=== PATIENT | female | born 1965 | race Caucasian/White ===

== ENCOUNTER 2017-03-01 16:23 | Inpatient (IN) | payer OTHER ==
[~2017-03-01] VITALS: Ht 152.4 cm; Wt 86.3 kg
[2017-03-01 18:00] VITALS: BP 123/60; PULSE 78; RESP 18
[2017-03-01 18:05] VITALS: Ht 152.4 cm; Wt 86.3 kg
[2017-03-01 19:00] VITALS: BP 128/70; RESP 18
[2017-03-01] MEDS ORDERED: NACL 0.9% 3 ML SYG IV SCH (19:00)
[2017-03-01] MEDS ORDERED: ONDANSETRON 4 MG INJ IV PRN (19:00)
[2017-03-01] MEDS ORDERED: HYDROCODONE/APAP (5/325) TAB PO PRN (19:00)
[2017-03-01] MEDS ORDERED: ACETAMINOPHEN 325 MG TAB PO PRN (19:00)
[2017-03-01] MEDS ORDERED: DOCUSATE SODIUM 100 MG CAP PO PRN (19:00)
[2017-03-01] MEDS ORDERED: ZOLPIDEM 5 MG TAB PO PRN (19:00)
[2017-03-01] MEDS ORDERED: morphine 2 MG INJ IV PRN (19:00)
[2017-03-01] MEDS: DEXTROSE 5%-0.45% NACL 1,000 ML IV SCH (19:13)
--- NOTE | 2017-03-01 19:44 | HP ---
DATE OF ADMISSION: 03/01/2017 CHIEF COMPLAINT: Abdominal pain. HISTORY OF PRESENT ILLNESS: The patient is a 51-year-old female with a history of obesity, otherwis e no medical history. The patient has been experiencing abdominal pain intermittently for the past several years, usually it occurs twice a year, but she states that the pain has been more frequent a s of late. She states that she had pain in her abdomen quite severely for the past 6 days. She has had 3 visits to the ER at [place]. The patient once again went to [place] where she presente d with the same complaint of abdominal pain. She did have ultrasound of the abdomen that showed a c holelithiasis; otherwise, no evidence of cholecystitis. She had a normal common bile duct and hepat omegaly; otherwise, no significant findings. She did have elevated WBC at 13.3. The patient was se nt to [facility] for further workup. She does state that at times she gets nauseous and sh e has had bouts of emesis. She has no other complaints at this time. PAST MEDICAL HISTORY: Morbid obesity and intermittent abdominal pain. PAST SURGICAL HISTORY: . HOME MEDICATIONS: None. ALLERGIES: NO KNOWN DRUG ALLERGIES. FAMILY HISTORY: Denies. SOCIAL HISTORY: Denies any alcohol, tobacco, or drug abuse. REVIEW OF SYSTEMS: A 12-point review of systems is negative except for that discussed in HPI. PHYSICAL EXAMINATION: VITAL SIGNS: Temperature is 98.1, pulse 78, respiratory rate 18, BP 122/60, saturation 92% on room air. GENERAL: No acute distress, alert and oriented. HEENT: Normocephalic, atraumatic. LUNGS: Clear to auscultation. CARDIOVASCULAR: Regular rate and rhythm. ABDOMEN: Nondistended, soft. No surgical scars noted. Tender to palpation diffusely. Negative Mu rphy sign. EXTREMITIES: No clubbing, cyanosis, or edema. LABORATORIES: At [place] show white count 13.3, platelets of 351, glucose is slightly elevated a t 132, ALT is 91, lipase is 129, test was normal. DIAGNOSTICS: Ultrasound of the abdomen shows cholelithiasis, no evidence of bladder wall thickening or pericholecystic free fluid, normal common bile duct, hepatomegaly. ASSESSMENT AND PLAN 1. Persistent abdominal pain with nausea, vomiting. The patient had an ultrasound that did show ch olelithiasis. Her symptoms of abdominal pain are diffuse. Her lipase is slightly elevated at 129. The patient has had several visits to the ER for the same symptoms and requires further workup at t his time. Will order a HIDA scan as well as MRCP. Will get a GI and surgical consultations. Will give the patient a clear liquid diet and check lipase in the a.m. 2. Morbid obesity. Lifestyle changes will be advised. 3. Leukocytosis, possibly reactive secondary to pain. Will check a UA 4. Hyperglycemia. Will check an A1c. The patient has no reported history of diabetes. 5. Prophylaxis, ambulation. Dictated By: ELISSA PEACE MD BS/EDUARDO Conf#: [id number] DID#: [id number]
--- NOTE | 2017-03-01 19:47 | CONS ---
Date/Time of Note Date/Time of Note DATE: 03/01/17 TIME: 19:40 Assessment/Plan Assessment/Plan Chief Complaint/Hosp Course 51-year-old female with symptomatic cholelithiasis/chronic cholecystitis and likely gallstone pancreatitis versus acute cholecystitis * Continue IV fluid hydration, pain control * Monitor LFTs, lipase level * HIDA scan and MRCP have been ordered by primary care team * If continues to have pain then will need cholecystectomy * Medical clearance for possible surgery The above was discussed with the patient and the primary care team. Further recommendations will be made based on patient's clinical course Problems: Consultation Date/Type/Reason Admit Date/Time Mar 01, 2017 at 17:35 Date of Consultation: Mar 01, 2017 Type of Consultation: GENERAL SURGERY Reason for Consultation Abdominal pain Hx of Present Illness Patient is an obese 51-year-old female who denies any significant past medical history who is transferred from [facility] with right upper quadrant abdominal pain. Patient states her pain is been present for the last 5 days and constant in nature. It is worsened with oral intake. She does admit to eating a lot of greasy and fatty foods. She denies any diarrhea/ constipation or fever/chills. She has had multiple visits to the [place] emergency room and was diagnosed with gallstones, but discharged until this most recent episode. An ultrasound done in this most recent visit showed gallstones without gallbladder wall thickening or pericholecystic fluid. She did have a leukocytosis of 13,000. Her LFTs were within normal limits, however , her lipase was mildly elevated at 129. Currently she is still complaining of right upper quadrant abdominal pain. A 14 point review of systems was conducted and was negative except for that which is mentioned in HPI Past Medical History Medical History: no pertinent history Past Surgical History Past Surgical Hx: other () Social History Smoking Status: Never smoker Exam/Review of Systems Vital Signs Vitals Vital Signs Date Time Temp Pulse Resp B/P Pulse Ox O2 Delivery O2 Flow Rate FiO2 03/01/17 18:00 98.1 78 18 123/60 92 Exam GENERAL: Awake, alert, oriented x 3. No acute distress. SKIN: No jaundice. HEENT: PERRLA, EOMI, No Scleral Icterus NECK: Supple without JVD CARDIOVASCULAR: S1S2, regular rate and rhythm. No murmurs appreciated. RESPIRATORY: Clear to auscultation bilaterally. ABDOMEN: Obese, soft, bowel sounds present, nondistended, there is mild epigastric tenderness to palpation with moderate right upper quadrant tenderness to palpation. There is a negative Bustamante sign. There is no rebound or guarding. EXTREMITIES: Free range of motion x 4. No cyanosis, edema, or clubbing. NEUROLOGIC: Cranial nerves II-XII are intact. Sensation is intact grossly. Medications Medications Current Medications Dextrose/Sodium Chloride (D5-1/2ns) 1,000 ml @ 100 mls/hr Q10H IV Last administered on 03/01/17t 19:13; Admin Dose 100 MLS/HR; Start 03/01/17 at 18:45 Ondansetron HCl (Zofran Inj) 4 mg Q6H PRN IV NAUSEA AND/OR VOMITING; Start 07/08 at 19:00 Acetaminophen (Tylenol Tab) 650 mg Q6H PRN PO PAIN LEVEL 1-3 OR FEVER; Start at 19:00 Acetaminophen/ Hydrocodone Bitart ([place] (5/325)) 1 tab Q6H PRN PO MODERATE PAIN LEVEL 4-6; Start 03/01/17 at 19:00 Morphine Sulfate (morphine) 2 mg Q4H PRN IV SEVERE PAIN LEVEL 7-10; Start 03/01 at 19:00 Docusate Sodium (Colace) 100 mg Q12H PRN PO CONSTIPATION; Start 03/01/17 at 19: 00 Zolpidem Tartrate 5 mg 5 mg QHS PRN PO SLEEP; Start 03/01/17 at 19:00 Ampicillin Sodium/ Sulbactam Sodium (Unasyn 3gm/NS (Pmx)) 100 ml @ 100 mls/hr Q6 IVPB ; Start 03/01/17 at 20:00 BILLIE SMALLWOOD MD Mar 01, 2017 19:47
[2017-03-01] MEDS: AMPICILLIN/SULB 3 GM/NS (PMX) 100 ML IVPB SCH (21:11)
[2017-03-02] MEDS: AMPICILLIN/SULB 3 GM/NS (PMX) 100 ML IVPB SCH ×5 (00:19→23:50)
[2017-03-02 05:09] LABS: ADD SCAN DIFF NO
[2017-03-02 05:11] LABS: BASOPHILS % 0.2 % (0.0-2.0); EOSINOPHILS # 0.3 10^3/ul (0.0-0.5); EOSINOPHILS % 2.9 % (0.0-7.0); HEMATOCRIT 33.3 % (37.0-47.0); HEMOGLOBIN 10.9 g/dl (12.0-16.0); LYMPHOCYTES # 2.3 10^3/ul (0.8-2.9); LYMPHOCYTES % 25.7 % (15.0-51.0); MEAN CORPUSCULAR HEMOGLOBIN 29.9 pg (29.0-33.0); MEAN CORPUSCULAR HGB CONC 32.7 g/dl (32.0-37.0); MEAN CORPUSCULAR VOLUME 91.5 fl (82.0-101.0); MEAN PLATELET VOLUME 9.6 fl (7.4-10.4); MONOCYTE # 0.8 10^3/ul (0.3-0.9); MONOCYTES % 8.2 % (0.0-11.0); NEUTROPHIL # 5.7 10^3/ul (1.6-7.5); NEUTROPHILS % 62.7 % (39.0-77.0); PLATELET COUNT 338 10^3/UL (140-415); RED BLOOD COUNT 3.64 10^6/ul (4.20-5.40); RED CELL DISTRIBUTION WIDTH 13.3 % (11.5-14.5); WHITE BLOOD COUNT 9.1 10^3/ul (4.8-10.8)
[2017-03-02 05:43] LABS: ALBUMIN 3.5 g/dl (3.3-4.9); ALBUMIN/GLOBULIN RATIO 1.29; BILIRUBIN,INDIRECT 0.4 mg/dl (0-1.1); BILIRUBIN,TOTAL 0.4 mg/dl (0.2-1.3); CALCIUM 8.3 mg/dl (8.4-10.2); CHOL/HDL RATIO 4.3 RATIO; CREATININE 0.54 mg/dl (0.44-1.00); TOTAL PROTEIN 6.2 g/dl (6.1-8.1)
[2017-03-02] MEDS: DEXTROSE 5%-0.45% NACL 1,000 ML IV SCH ×3 (07:02→21:53)
[2017-03-02 07:46] VITALS: BP 123/70; RESP 18
--- NOTE | 2017-03-02 10:16 | CONS ---
Date/Time of Note Date/Time of Note DATE: 03/02/17 TIME: 09:57 Assessment/Plan Assessment/Plan Additional Assessment/Plan Assessment * Abdominal pain Cholecystitis vs gallstone pancreatitis Plan * NPO * continue present management * Will await MRCP and HIDA scan results * Further recommendations depend on patient clinical course Consultation Date/Type/Reason Admit Date/Time Mar 01, 2017 at 17:35 Date of Consultation: Mar 02, 2017 Type of Consultation: Gastroenterology Reason for Consultation cholecystitis/elevated lipase Referring Provider: ELISSA PEAEC Hx of Present Illness 51 years old female who was transferred to our hospital from another [facility] [place] because of right upper quadrant pain.Present condition started 5 days as right upper quadrant pain,sharp with no radiation with associated nausea and non bilious vomiting.She denies any fever,chest pain,shortness of breath hematemesis.nor hematochezia.She had [facility] because of right upper quadrant pain.Ultrasound performed at [place] revealed cholelithiasis,no evidenced gallbladder thickening pericholecystic fluid,normal common bile duct and hepatomegaly.Lipase was 129 at [place] but present lipase levels 89,AST 19,ALT 81and alkaline phosphatase 77. Patient claims mild abdominal pain non radiating but with no nausea ,vomiting or fever.MRI and HIDA scan was ordered and will await results. Constitutional: improved Eyes: no complaints ENT: no complaints Respiratory: no complaints Cardiovascular: no complaints Gastrointestinal: nausea, pain, vomiting Genitourinary: no complaints Musculoskeletal: no complaints Skin: no complaints Neurologic: no complaints Endocrine: no complaints Lymphatic: no complaints Psychological: nl mood/affect, no complaints Immunologic: no complaints Past Medical History Medical History: no pertinent history Past Surgical History Past Surgical Hx: no surgical history, other () Family History Significant Family History: no pertinent family hx Social History Smoking Status: Never smoker Exam/Review of Systems Vital Signs Vitals Vital Signs Date Time Temp Pulse Resp B/P Pulse Ox O2 Delivery O2 Flow Rate FiO2 03/02/17 07:46 98.5 85 18 123/70 95 Intake and Output 03/01/17 03/01/17 03/02/17 15:00 23:00 07:00 Intake Total 100 ml 400 ml Output Total 1300 ml Balance 100 ml -900 ml Exam Constitutional: alert, oriented, well developed Head: atraumatic, normocephalic Eyes: PERRL, nl sclera ENMT: mucosa pink and moist, nl external ears & nose, nl nasal mucosa & septum Neck: non-tender, supple Respiratory: clear to auscultation, normal air movement Cardiovascular: nl pulses, regular rate and rhythm Gastrointestinal: nl liver, spleen, soft, tender (right upper quadrant), No rebound or guarding Musculoskeletal: nl extremities to inspection, nl gait and stance Extremities: normal pulses Neurological: nl mental status, nl speech, nl strength Skin: nl turgor, No rash or lesions Lymph: nl lymph nodes Results Result Diagram: 03/02/17 0431 03/02/17 0431 Results 24 hrs Laboratory Tests Test 03/02/17 04:31 White Blood Count 9.1 Red Blood Count 3.64 L Hemoglobin 10.9 L Hematocrit 33.3 L Mean Corpuscular Volume 91.5 Mean Corpuscular Hemoglobin 29.9 Mean Corpuscular Hemoglobin Concent 32.7 Red Cell Distribution Width 13.3 Platelet Count 338 Mean Platelet Volume 9.6 Neutrophils % 62.7 Lymphocytes % 25.7 Monocytes % 8.2 Eosinophils % 2.9 Basophils % 0.2 Nucleated Red Blood Cells % 0.0 Neutrophils # 5.7 Lymphocytes # 2.3 Monocytes # 0.8 Eosinophils # 0.3 Basophils # 0.0 Nucleated Red Blood Cells # 0.0 Sodium Level 139 Potassium Level 4.0 Chloride Level 107 Carbon Dioxide Level 27 Anion Gap 9 Blood Urea Nitrogen 6 L Creatinine 0.54 Glucose Level 113 Hemoglobin A1c 5.4 Calcium Level 8.3 L Phosphorus Level 4.0 Magnesium Level 2.0 Total Bilirubin 0.4 Direct Bilirubin 0.00 Indirect Bilirubin 0.4 Aspartate Amino Transf (AST/SGOT) 19 Alanine Aminotransferase (ALT/SGPT) 81 H Alkaline Phosphatase 77 Total Protein 6.2 Albumin 3.5 Globulin 2.70 Albumin/Globulin Ratio 1.29 Triglycerides Level 107 Cholesterol Level 135 LDL Cholesterol, Calculated 83 HDL Cholesterol 31 L Cholesterol/HDL Ratio 4.3 Lipase 89 Medications Medications Current Medications Dextrose/Sodium Chloride (D5-1/2ns) 1,000 ml @ 100 mls/hr Q10H IV Last administered on 03/02/17t 07:02; Admin Dose 100 MLS/HR; Start 03/01/17 at 18:45 Ondansetron HCl (Zofran Inj) 4 mg Q6H PRN IV NAUSEA AND/OR VOMITING; Start 07/08 at 19:00 Acetaminophen (Tylenol Tab) 650 mg Q6H PRN PO PAIN LEVEL 1-3 OR FEVER; Start at 19:00 Acetaminophen/ Hydrocodone Bitart ([place] (5/325)) 1 tab Q6H PRN PO MODERATE PAIN LEVEL 4-6; Start 03/01/17 at 19:00 Morphine Sulfate (morphine) 2 mg Q4H PRN IV SEVERE PAIN LEVEL 7-10; Start 03/01 at 19:00 Docusate Sodium (Colace) 100 mg Q12H PRN PO CONSTIPATION; Start 03/01/17 at 19: 00 Zolpidem Tartrate 5 mg 5 mg QHS PRN PO SLEEP; Start 03/01/17 at 19:00 Ampicillin Sodium/ Sulbactam Sodium (Unasyn 3gm/NS (Pmx)) 100 ml @ 100 mls/hr Q6 IVPB Last administered on 03/02/17t 05:15; Admin Dose 100 MLS/HR; Start 07/08 at 20:00 MARIO SANDERS MD Mar 02, 2017 10:08
--- NOTE | 2017-03-02 10:51 | PN ---
Date/Time of Note Date/Time of Note DATE: 03/02/17 TIME: 10:44 Assessment/Plan VTE Prophylaxis VTE Prophylaxis Intervention: ambulation Lines/Catheters [facility] Peripheral IV Urinary Cath still in place: No Assessment/Plan Chief Complaint/Hosp Course 1. Symptomatic cholelithiasis with mild pancreatitis Patient has had recurrent bouts of abdominal pain with multiple ER visits and may need cholecystectomy during this admission Surgical and GI consults appreciated, patient may have a cholecystectomy tomorrow, follow-up with surgical recommendations Follow-up on HIDA scan and MRCP for evaluation of cholecystitis and possible choledocholithiasis Lipase is now normal and patients previous mild elevation may be secondary to gallstone pancreatitis or microlithiasis 2. Morbid obesity Lifestyle changes will be advised. 3. Leukocytosis-resolved Patient has no evidence of infection at this time hence no indication for antibiotics, UA at previous hospital was negative for infection 4. Hyperglycemia-resolved Elevated sugars were likely secondary to stress as A1c is 5.4 Prophylaxis: Ambulation Problems: Subjective 24 Hr Interval Summary Constitutional: no complaints Exam/Review of Systems Vital Signs Vitals Vital Signs Date Time Temp Pulse Resp B/P Pulse Ox O2 Delivery O2 Flow Rate FiO2 03/02/17 07:46 98.5 85 18 123/70 95 Intake and Output 03/01/17 03/01/17 03/02/17 15:00 23:00 07:00 Intake Total 100 ml 400 ml Output Total 1300 ml Balance 100 ml -900 ml Exam Constitutional: alert, oriented Respiratory: clear to auscultation Cardiovascular: regular rate and rhythm Gastrointestinal: non-tender, soft, No distended Musculoskeletal: nl extremities to inspection Results Result Diagram: 03/02/17 0431 03/02/17 0431 Results 24 hrs Laboratory Tests Test 03/02/17 04:31 White Blood Count 9.1 Red Blood Count 3.64 L Hemoglobin 10.9 L Hematocrit 33.3 L Mean Corpuscular Volume 91.5 Mean Corpuscular Hemoglobin 29.9 Mean Corpuscular Hemoglobin Concent 32.7 Red Cell Distribution Width 13.3 Platelet Count 338 Mean Platelet Volume 9.6 Neutrophils % 62.7 Lymphocytes % 25.7 Monocytes % 8.2 Eosinophils % 2.9 Basophils % 0.2 Nucleated Red Blood Cells % 0.0 Neutrophils # 5.7 Lymphocytes # 2.3 Monocytes # 0.8 Eosinophils # 0.3 Basophils # 0.0 Nucleated Red Blood Cells # 0.0 Sodium Level 139 Potassium Level 4.0 Chloride Level 107 Carbon Dioxide Level 27 Anion Gap 9 Blood Urea Nitrogen 6 L Creatinine 0.54 Glucose Level 113 Hemoglobin A1c 5.4 Calcium Level 8.3 L Phosphorus Level 4.0 Magnesium Level 2.0 Total Bilirubin 0.4 Direct Bilirubin 0.00 Indirect Bilirubin 0.4 Aspartate Amino Transf (AST/SGOT) 19 Alanine Aminotransferase (ALT/SGPT) 81 H Alkaline Phosphatase 77 Total Protein 6.2 Albumin 3.5 Globulin 2.70 Albumin/Globulin Ratio 1.29 Triglycerides Level 107 Cholesterol Level 135 LDL Cholesterol, Calculated 83 HDL Cholesterol 31 L Cholesterol/HDL Ratio 4.3 Lipase 89 Medications Medications Current Medications Dextrose/Sodium Chloride (D5-1/2ns) 1,000 ml @ 100 mls/hr Q10H IV Last administered on 03/02/17 07:02; Admin Dose 100 MLS/HR; Start 03/01/17 at 18:45 Ondansetron HCl (Zofran Inj) 4 mg Q6H PRN IV NAUSEA AND/OR VOMITING; Start 07/08 at 19:00 Acetaminophen (Tylenol Tab) 650 mg Q6H PRN PO PAIN LEVEL 1-3 OR FEVER; Start at 19:00 Acetaminophen/ Hydrocodone Bitart ([place] (5/325)) 1 tab Q6H PRN PO MODERATE PAIN LEVEL 4-6; Start 03/01/17 at 19:00 Morphine Sulfate (morphine) 2 mg Q4H PRN IV SEVERE PAIN LEVEL 7-10; Start 03/01 at 19:00 Docusate Sodium (Colace) 100 mg Q12H PRN PO CONSTIPATION; Start 03/01/17 at 19: 00 Zolpidem Tartrate 5 mg 5 mg QHS PRN PO SLEEP; Start 03/01/17 at 19:00 Ampicillin Sodium/ Sulbactam Sodium (Unasyn 3gm/NS (Pmx)) 100 ml @ 100 mls/hr Q6 IVPB Last administered on 03/02/17 05:15; Admin Dose 100 MLS/HR; Start 07/08 at 20:00 ELISSA PEACE Mar 02, 2017 10:51
--- NOTE | 2017-03-02 12:13 | PN ---
Date/Time of Note Date/Time of Note DATE: 03/02/17 TIME: 12:10 Assessment/Plan Lines/Catheters IV Catheter Type (from Nrs): Peripheral IV Mike in Place (from Nrs): No Assessment/Plan Assessment/Plan 51-year-old female with symptomatic cholelithiasis/chronic cholecystitis and likely gallstone pancreatitis versus acute cholecystitis * Clinically improved and currently pain-free * LFTs and lipase level normalized. * HIDA scan and MRCP have been ordered by primary care team * Discussed treatment options with patient. If remains pain-free then can plan for outpatient cholecystectomy. If continues to have pain then will need inpatient cholecystectomy. The above was discussed with the patient and the primary care team. Patient would prefer to have outpatient cholecystectomy if she remains pain-free. Further recommendations will be made based on patient's clinical course Subjective 24 Hr Interval Summary Feels much better. Denies abdominal pain. Afebrile. Exam/Review of Systems Vital Signs Vitals Vital Signs Date Time Temp Pulse Resp B/P Pulse Ox O2 Delivery O2 Flow Rate FiO2 03/02/17 07:46 98.5 85 18 123/70 95 Intake and Output 03/01/17 03/01/17 03/02/17 15:00 23:00 07:00 Intake Total 100 ml 400 ml Output Total 1300 ml Balance 100 ml -900 ml Exam Free Text/Dictation GENERAL: Awake, alert, oriented x 3. No acute distress. SKIN: No jaundice. HEENT: PERRLA, EOMI, No Scleral Icterus CARDIOVASCULAR: S1S2, regular rate and rhythm. No murmurs appreciated. RESPIRATORY: Clear to auscultation bilaterally. ABDOMEN: Obese, soft, bowel sounds present, nondistended, nontender to palpation EXTREMITIES: Free range of motion x 4. No cyanosis, edema, or clubbing. Results Result Diagram: 03/02/17 0431 03/02/17 0431 BILLIE SMALLWOOD MD Mar 02, 2017 12:13
--- NOTE | 2017-03-02 18:24 | RADRPT ---
PROCEDURE: MR Abdomen. CLINICAL INDICATION: Abdominal pain. Concern for choledocholithiasis and cholecystitis. TECHNIQUE: MRI abdomen without contrast was performed on the a high-resolution, high [place] field [facility] scanner. Patient was examined without IV contrast. Images were reviewed on a high-resolutio n PACS workstation. COMPARISON: None available FINDINGS: MRI Abdomen: The liver is enlarged measuring 21.5 cm but demonstrates homogeneous signal intensity. No liver mas s lesion or intrahepatic biliary dilatation is seen. The spleen is normal in size and homogeneous i n signal intensity. The stomach is partially collapsed but grossly unremarkable. Multiple stones o f varying sizes are present within the gallbladder ranging from 5-18 mm. No gallbladder wall edema or pericholecystic inflammatory changes seen. There is no intra or extrahepatic biliary duct dilata tion. The proximal common bile duct measures 4 mm and tapers smoothly towards the ampulla. There i s no evidence of pancreatic divisum. There is questionable cheryl pancreatic T2 signal surrounding th e pancreatic body/neck and extending inferiorly and mesentery. No focal pancreatic lesion is seen. Small simple appearing T2 hyperintense right-sided renal lesions likely represent small cysts. The a drenal glands and kidneys are otherwise symmetrically normal. The aorta is of normal caliber. There is no retroperitoneal lymphadenopathy. The visualized bowel is unremarkable. IMPRESSION: 1. Cholelithiasis without evidence of cholecystitis, choledocholithiasis, or biliary obstruction. 2. Questionable peripancreatic increased T2 signal with surrounding inflammatory changes, may repre sent mild pancreatitis. Correlate with pancreatic enzymes. 3. Simple-appearing small right renal cyst. 4. Hepatomegaly. RPTAT: AA .Bronson Iyer MD, Date Time Electronically viewed and signed by .Bronson Iyer MD, MD on 03/02/2017 18:24 .A/
[2017-03-02 19:06] VITALS: BP 130/72; RESP 18
[2017-03-03] MEDS: AMPICILLIN/SULB 3 GM/NS (PMX) 100 ML IVPB SCH ×3 (05:40→18:07)
[2017-03-03 05:43] LABS: ADD SCAN DIFF NO
[2017-03-03 06:04] LABS: BASOPHILS % 0.3 % (0.0-2.0); EOSINOPHILS # 0.3 10^3/ul (0.0-0.5); EOSINOPHILS % 4.4 % (0.0-7.0); HEMATOCRIT 32.6 % (37.0-47.0); HEMOGLOBIN 10.4 g/dl (12.0-16.0); LYMPHOCYTES # 2.4 10^3/ul (0.8-2.9); LYMPHOCYTES % 33.4 % (15.0-51.0); MEAN CORPUSCULAR HEMOGLOBIN 29.3 pg (29.0-33.0); MEAN CORPUSCULAR HGB CONC 31.9 g/dl (32.0-37.0); MEAN CORPUSCULAR VOLUME 91.8 fl (82.0-101.0); MONOCYTE # 0.6 10^3/ul (0.3-0.9); MONOCYTES % 8.1 % (0.0-11.0); NEUTROPHIL # 3.9 10^3/ul (1.6-7.5); NEUTROPHILS % 53.5 % (39.0-77.0); PLATELET COUNT 316 10^3/UL (140-415); RED BLOOD COUNT 3.55 10^6/ul (4.20-5.40); RED CELL DISTRIBUTION WIDTH 13.2 % (11.5-14.5); WHITE BLOOD COUNT 7.3 10^3/ul (4.8-10.8)
[2017-03-03 06:26] LABS: ALBUMIN 3.4 g/dl (3.3-4.9); ALBUMIN/GLOBULIN RATIO 1.25; BILIRUBIN,INDIRECT 0.2 mg/dl (0-1.1); BILIRUBIN,TOTAL 0.2 mg/dl (0.2-1.3); CALCIUM 8.5 mg/dl (8.4-10.2); CREATININE 0.56 mg/dl (0.44-1.00); POTASSIUM 3.9 mmol/L (3.5-5.1); TOTAL PROTEIN 6.1 g/dl (6.1-8.1)
[2017-03-03 07:24] VITALS: BP 107/59; RESP 19
--- NOTE | 2017-03-03 08:52 | PN ---
Date/Time of Note Date/Time of Note DATE: 03/03/17 TIME: 08:46 Assessment/Plan VTE Prophylaxis VTE Prophylaxis Intervention: ambulation, SCD's Lines/Catheters IV Catheter Type (from Nrs): Peripheral IV Urinary Cath still in place: No Assessment/Plan Assessment/Plan 51 yo F who presented with abd pain managed for 1. Symptomatic cholelithiasis with mild pancreatitis * Patient has had recurrent bouts of abdominal pain with multiple ER visits and may need cholecystectomy during this admission * Surgical and GI consults appreciated, patient has opted for outpt cholecystectomy if not emergent per surgery * MRCP not suggestive of choledocholithiasis / mild transaminase elevation resolved / Lipase levels wnl * Follow-up on HIDA scan to r/o cholecystitis 2. Morbid obesity * tosin controlled diet / dietary counselling / lifestyle changes 3. Reactive Leukocytosis-resolved * Patient has no evidence of infection at this time hence no indication for antibiotics, UA at previous hospital was negative for infection Prophylaxis: Ambulation Subjective 24 Hr Interval Summary Free Text/Dictation No new issues, patient being wheeled to HIDA scan Exam/Review of Systems Vital Signs Vitals Vital Signs Date Time Temp Pulse Resp B/P Pulse Ox O2 Delivery O2 Flow Rate FiO2 03/03/17 07:24 98.7 78 19 107/59 99 Intake and Output 03/02/17 03/02/17 03/03/17 15:00 23:00 07:00 Intake Total 1000 ml 1520 ml 580 ml Output Total 300 ml 1800 ml Balance 1000 ml 1220 ml -1220 ml Exam Constitutional: alert, oriented Respiratory: clear to auscultation Cardiovascular: regular rate and rhythm Gastrointestinal: non-tender, soft, No distended Musculoskeletal: nl extremities to inspection Results Result Diagram: 03/03/17 0435 03/03/17 0435 Results 24 hrs Laboratory Tests Test 03/03/17 04:35 White Blood Count 7.3 Red Blood Count 3.55 L Hemoglobin 10.4 L Hematocrit 32.6 L Mean Corpuscular Volume 91.8 Mean Corpuscular Hemoglobin 29.3 Mean Corpuscular Hemoglobin Concent 31.9 L Red Cell Distribution Width 13.2 Platelet Count 316 Mean Platelet Volume 10.0 Neutrophils % 53.5 Lymphocytes % 33.4 Monocytes % 8.1 Eosinophils % 4.4 Basophils % 0.3 Nucleated Red Blood Cells % 0.0 Neutrophils # 3.9 Lymphocytes # 2.4 Monocytes # 0.6 Eosinophils # 0.3 Basophils # 0.0 Nucleated Red Blood Cells # 0.0 Sodium Level 141 Potassium Level 3.9 Chloride Level 108 Carbon Dioxide Level 27 Anion Gap 10 Blood Urea Nitrogen 4 L Creatinine 0.56 Glucose Level 119 Calcium Level 8.5 Total Bilirubin 0.2 Direct Bilirubin 0.00 Indirect Bilirubin 0.2 Aspartate Amino Transf (AST/SGOT) 19 Alanine Aminotransferase (ALT/SGPT) 67 Alkaline Phosphatase 74 Total Protein 6.1 Albumin 3.4 Globulin 2.70 Albumin/Globulin Ratio 1.25 Lipase 47 Medications Medications Current Medications Dextrose/Sodium Chloride (D5-1/2ns) 1,000 ml @ 100 mls/hr Q10H IV Last administered on 03/02/17 21:53; Admin Dose 100 MLS/HR; Start 03/01/17 at 18:45 Ondansetron HCl (Zofran Inj) 4 mg Q6H PRN IV NAUSEA AND/OR VOMITING; Start 07/08 at 19:00 Acetaminophen (Tylenol Tab) 650 mg Q6H PRN PO PAIN LEVEL 1-3 OR FEVER; Start at 19:00 Acetaminophen/ Hydrocodone Bitart ([place] (5/325)) 1 tab Q6H PRN PO MODERATE PAIN LEVEL 4-6; Start 03/01/17 at 19:00 Morphine Sulfate (morphine) 2 mg Q4H PRN IV SEVERE PAIN LEVEL 7-10; Start 03/01 at 19:00 Docusate Sodium (Colace) 100 mg Q12H PRN PO CONSTIPATION; Start 03/01/17 at 19: 00 Zolpidem Tartrate 5 mg 5 mg QHS PRN PO SLEEP; Start 03/01/17 at 19:00 Ampicillin Sodium/ Sulbactam Sodium (Unasyn 3gm/NS (Pmx)) 100 ml @ 100 mls/hr Q6 IVPB Last administered on 03/03/17 05:40; Admin Dose 100 MLS/HR; Start 07/08 at 20:00 Procedures Procedures ROCEDURE: MR Abdomen. CLINICAL INDICATION: Abdominal pain. Concern for choledocholithiasis and cholecystitis. TECHNIQUE: MRI abdomen without contrast was performed on the a high-resolution , high [place] field strength scanner. Patient was examined without IV contrast. Images were reviewed on a high-resolution PACS workstation. COMPARISON: None available FINDINGS: MRI Abdomen: The liver is enlarged measuring 21.5 cm but demonstrates homogeneous signal intensity. No liver mass lesion or intrahepatic biliary dilatation is seen. The spleen is normal in size and homogeneous in signal intensity. The stomach is partially collapsed but grossly unremarkable. Multiple stones of varying sizes are present within the gallbladder ranging from 5-18 mm. No gallbladder wall edema or pericholecystic inflammatory changes seen. There is no intra or extrahepatic biliary duct dilatation. The proximal common bile duct measures 4 mm and tapers smoothly towards the ampulla. There is no evidence of pancreatic divisum. There is questionable cheryl pancreatic T2 signal surrounding the pancreatic body/neck and extending inferiorly and mesentery. No focal pancreatic lesion is seen. Small simple appearing T2 hyperintense right-sided renal lesions likely represent small cysts. The adrenal glands and kidneys are otherwise symmetrically normal. The aorta is of normal caliber. There is no retroperitoneal lymphadenopathy. The visualized bowel is unremarkable. IMPRESSION: 1. Cholelithiasis without evidence of cholecystitis, choledocholithiasis, or biliary obstruction. 2. Questionable peripancreatic increased T2 signal with surrounding inflammatory changes, may represent mild pancreatitis. Correlate with pancreatic enzymes. 3. Simple-appearing small right renal cyst. 4. Hepatomegaly. RPTAT: AA .Bronson Iyer MD, Date Time Electronically viewed and signed by .Bronson Iyer MD, on 03/02/2017 18:24 .A/ CC: ELISSA PEACE BOLATITO M. Mar 03, 2017 08:52
[2017-03-03] MEDS: DEXTROSE 5%-0.45% NACL 1,000 ML IV SCH (12:49)
--- NOTE | 2017-03-03 14:28 | QN ---
Documentation Comment Patient down getting HIDA scan. Discussed with nurse. No complaints of pain and wants to go home. If HIDA negative then patient stable surgically for discharge home and follow up for outpatient cholecystectomy. BILLIE SMALLWOOD MD Mar 03, 2017 14:28
--- NOTE | 2017-03-03 15:56 | RADRPT ---
PROCEDURE: Nuclear medicine hepatobiliary scan CLINICAL INDICATION: Right upper quadrant pain. Abdominal pain. Gallstones. TECHNIQUE: 8.4 mCi of technetium-99m Choletec was administered intravenously. Planar imaging of t hepatobiliary system was performed. Delayed images were obtained. Images were reviewed on the h igh resolution PACS workstation. COMPARISON: MRI dated 03/02/2017 FINDINGS: There is normal and homogeneous uptake throughout the hepatobiliary system. There is normal emptyin g of radiotracer into the biliary tract. The common bile duct is normal. The gallbladder is visual ized at 30 minutes. There is lack of visualization of the small bowel on the initial images. On th e delayed images, there is emptying of radiotracer from the liver, with normal activity throughout t he small bowel. IMPRESSION: 1. Normal hepatobiliary scan. There is normal filling of the gallbladder. 2. Patent common bile duct with normal visualization of the small bowel. RPTAT: HMJB .Galdino Crisostomo MD, Date Time Electronically viewed and signed by .Galdino Crisostomo MD, on 03/03/2017 15:55 .B/
--- NOTE | 2017-03-03 16:42 | PDOCDIS ---
Discharge Instructions DIAGNOSIS Discharge Diagnosis: Gall stones CONDITION Patient Condition: Stable HOME CARE INSTRUCTIONS: Diet Instructions: Low Fat /Cholesterol ACTIVITY: Activity Restrictions: Slowly Increase Activity Rest between Activity REFERRALS Other Referrals F/u with Dr Parsons for surgery Phan Parsons MD Specialty : General Surgery Office Address : [address] [place] [id number] Office Office FADY ADAME Mar 03, 2017 16:42
--- NOTE | 2017-03-03 16:48 | DS ---
Date/Time of Note Date/Time of Note DATE: 03/03/17 TIME: 16:43 Discharge Summary Admission/Discharge Info Admit Date/Time Mar 01, 2017 at 17:35 Discharge Date/Time March 03, 2017 . Final Diagnosis 51-year-old female who presented with abdominal pain managed for the followin. Symptomatic cholelithiasis without choledocholithiasis. 2. Mild transaminitis now resolved 3. Morbid obesity 4. Reactive leukocytosis: Resolved 5. Mild pancreatitis also resolved . Consults Gastroenterology: Suchov General surgery: Jaqueline . Hospital Course Full details are available in the chart for review, in summary this 51-year-old female presented to emergency room with abdominal pain for the past several years intermittently and which had become more frequent of late. She was she was admitted and she was found to have a mildly elevated lipase level at 129. After an ultrasound showed cholelithiasis there was concern for gallstone pancreatitis. She had an MRCP however that showed cholelithiasis without evidence of cholecystitis, choledocholithiasis, or biliary obstruction. He did show a mild pancreatitis however as well as a small right renal cyst and hepatomegaly. After this she underwent a HIDA scan that came back normal. The surgeon did offer her elective cholecystectomy in-house, but patient opted to pursue this as outpatient. She was found to be mildly anemic however this was stable throughout her hospitalization. At this time she is tolerating a diet, she has been cleared for outpatient follow-up and outpatient surgical follow-up for an elective laparoscopic cholecystectomy when the patient is ready. Her lipase levels have normalized as liver enzymes as well. . Follow-up Plan Patient was follow-up with general surgery as outpatient for elective cholecystectomy. . Primary Care Provider [facility] Time spent on discharge: > 30 minutes Pending Labs Laboratory Tests Test 03/03/17 04:35 White Blood Count 7.310^3/ul (4.8-10.8) Red Blood Count 3.5510^6/ul (4.20-5.40) Hemoglobin 10.4g/dl (12.0-16.0) Hematocrit 32.6% (37.0-47.0) Mean Corpuscular Volume 91.8fl (82.0-101.0) Mean Corpuscular Hemoglobin 29.3pg (29.0-33.0) Mean Corpuscular Hemoglobin Concent 31.9g/dl (32.0-37.0) Red Cell Distribution Width 13.2% (11.5-14.5) Platelet Count 43003^3/UL (140-415) Mean Platelet Volume 10.0fl (7.4-10.4) Neutrophils % 53.5% (39.0-77.0) Lymphocytes % 33.4% (15.0-51.0) Monocytes % 8.1% (0.0-11.0) Eosinophils % 4.4% (0.0-7.0) Basophils % 0.3% (0.0-2.0) Nucleated Red Blood Cells % 0.0/100WBC (0.0-0.0) Neutrophils # 3.910^3/ul (1.6-7.5) Lymphocytes # 2.410^3/ul (0.8-2.9) Monocytes # 0.610^3/ul (0.3-0.9) Eosinophils # 0.310^3/ul (0.0-0.5) Basophils # 0.010^3/ul (0.0-0.1) Nucleated Red Blood Cells # 0.010^3/ul (0.0-0.0) Sodium Level 141mmol/L (135-144) Potassium Level 3.9mmol/L (3.5-5.1) Chloride Level 108mmol/L (97-110) Carbon Dioxide Level 27mmol/L (21-31) Anion Gap 10 (8-16) Blood Urea Nitrogen 4mg/dl (7-20) Creatinine 0.56mg/dl (0.44-1.00) Glucose Level 119mg/dl (70-220) Calcium Level 8.5mg/dl (8.4-10.2) Total Bilirubin 0.2mg/dl (0.2-1.3) Direct Bilirubin 0.00mg/dl (0.00-0.20) Indirect Bilirubin 0.2mg/dl (0-1.1) Aspartate Amino Transf (AST/SGOT) 19IU/L (15-46) Alanine Aminotransferase (ALT/SGPT) 67IU/L (13-69) Alkaline Phosphatase 74IU/L (42-121) Total Protein 6.1g/dl (6.1-8.1) Albumin 3.4g/dl (3.3-4.9) Globulin 2.70g/dl (1.3-3.2) Albumin/Globulin Ratio 1.25 Lipase 47U/L (23-300) FADY ADAME. Mar 03, 2017 16:48
[2017-03-03 19:15] VITALS: BP 125/76; RESP 18
== END 2017-03-03 20:25 | disposition home or self-care (01) | DRG 444 ==
LOC: MS1 17:35
PROVIDERS: ADMIT Internal Medicine; ATTEND Internal Medicine
DX: K80.20 Calculus of gallbladder without cholecystitis without obstruction (principal); K85.90 Acute pancreatitis without necrosis or infection, unspecified; E66.01 Morbid (severe) obesity due to excess calories; N28.1 Cyst of kidney, acquired; R16.0 Hepatomegaly, not elsewhere classified; D64.9 Anemia, unspecified; R73.9 Hyperglycemia, unspecified; Z68.37 Body mass index [BMI] 37.0-37.9, adult
CPT/HCPCS: 74181; 78226; 80053; 80061; 83036; 83690; 83735; 84100; 85025; A9537; J0295; J7042

== ENCOUNTER 2017-04-02 22:29 | Inpatient (IN) | payer OTHER ==
[~2017-04-02] VITALS: Ht 152.4 cm; Wt 89.1 kg
[2017-04-02 23:00] VITALS: BP 145/79; PULSE 82; RESP 20
[2017-04-02 23:39] VITALS: Ht 152.4 cm; Wt 89.1 kg
[2017-04-03] MEDS ORDERED: ONDANSETRON 4 MG INJ IV PRN ×2 (00:30→03:30)
[2017-04-03] MEDS: SOD CHLORIDE 0.9% 1,000 ML IV SCH ×3 (00:46→20:30)
[2017-04-03] MEDS: HYDROmorphONE 1 MG/ML SYG IV PRN ×5 (00:46→20:37)
[2017-04-03 02:00] VITALS: BP 147/86; RESP 19
--- NOTE | 2017-04-03 03:09 | HP ---
Date/Time of Note Date/Time of Note DATE: 04/03/17 TIME: 03:08 Assessment/Plan VTE Prophylaxis VTE Prophylaxis Intervention: SCD's Lines/Catheters IV C[facility]ter Type (from [facility]): Peripheral IV Urinary Cath still in place: No Assessment/Plan Chief Complaint/Hosp Course This is a 51-year-old female being admitted to the [facility] floor for: #1 suspected gallstone pancreatitis: Though at the current time ultrasound did not show any evidence of common bile duct dilatation there is was evidence of cholelithiasis. Also with with elevated alk phos AST and ALT along with lipase there remains a strong suspicion for this. Will order an MRCP to further evaluate. Will obtain a GI consult. Will consult surgery if indicated. At the current time we will keep the patient n.p.o. IV Dilaudid for pain control. IV fluids for hydration. Zofran for nausea. Will check lipids. Will repeat CMP and lipase level in the a.m. #2 UTI: At the current time will start the patient on ciprofloxacin IV. #3 morbid obesity: We will check lipids, A1c. Patient will need dietary education regarding weight loss. #4 DVT and GI prophylaxis: SCDs, Protonix Further treatment strategy will be implemented as per the clinical course Problems: HPI/ROS Admit Date/Time Admit Date/Time Apr 02, 2017 at 22:29 Hx of Present Illness Chief complaint: Right upper quadrant abdominal pain This is a 51-year-old female who was transferred from [place] with approximately 4 days of epigastric pain. Patient was a previously admitted to [facility] and diagnosed with cholecystitis and she was to be scheduled for an outpatient cholecystectomy. [facility] patient was found to have gallstones on ultrasound with no evidence of cholecystitis. Her lab lab work also was indicative of acute pancreatitis with a lipase of 2820 as well as a urinalysis with a positive leukoesterase. Elevated LFTs. Patient also has white blood cell count of 16. Ultrasound of the gallbladder showed cholelithiasis with no evidence of bladder thickening or pericholecystic cholecystic fluid. There was a normal common bile duct. There also is evidence of coarse liver echotexture. She did report nausea and vomiting and abdominal pain 10 out of 10. Upon arrival to [facility] on my exam patient was sleeping comfortably however she did have epigastric pain to palpation. Allergies: NKDA Medications: See NOV ROS Const: As per HPI Eyes : No pain discharge or redness or change in visual acuity ENT: No pain, sore throat, congestion, congestion, dysphagia or discharge Respiratory: No shortness of breath, cough, sputum, wheezing, or pleuritic pain Cardiovascular: No chest pain, palpitation, PND, or edema GI : As per HPI Genitourinary: No dysuria, hematuria, flank pain , discharge or CVA tenderness Musculoskeletal: No joint pain, back pain, neck pain, restricted range of motion in neck or joints Skin: No rash, bruising or hives Neuro: No headache, dizziness, syncope, seizure, focal weakness Endocrine: No polyuria, polydipsia, temperature intolerance Psych: No hallucination, depression, anxiety or suicidal ideation PMH/Family/Social Past Medical History morbid obesity, cholecystitis Past Surgical History Past Surgical Hx: other Family History Significant Family History: no pertinent family hx Social History Alcohol Use: none Smoking Status: Never smoker Drug Use: none Exam/Review of Systems Vital Signs Vitals Vital Signs Date Time Temp Pulse Resp B/P Pulse Ox O2 Delivery O2 Flow Rate FiO2 04/02/17 23:00 97.7 82 20 145/79 96 Exam Exam General: This is a 51-year-old female laying in bed in no acute distress HEENT: Atraumatic, normocephalic. The pupils are equal, round and reactive. Extraocular motor are intact Neck: Supple with full range of motion. No rigidity or meningismus Chest: Nontender Lungs: Clear to auscultation bilaterally no crackles rales or wheezing Heart: Normal S1-S2, Regular rhythm and rate. No murmur, S3, or S4 Abdomen: Soft, tender to palpation epigastric region, normal bowel sounds. Extremities: Normal to inspection, no edema no cyanosis Neurologic: Normal mental status, speech normal, cranial nerves II through XII are intact, motor and sensory are intact, no focal weakness Additional Comments Pertinent lab findings from [facility]: Lipase 2820 , urinalysis leukoesterase positive, alk phos 143, AST 384, ALT 305, ultrasound of the gallbladder showing cholelithiasis with no evidence of a bladder thickening or pericholecystic fluid. Normal common bile duct. Coarse liver echotexture. Hepatomegaly. White blood cell count: 16 Medications Medications Current Medications Sodium Chloride (NS) 1,000 ml @ 100 mls/hr Q10H IV Last administered on 00:46; Admin Dose 100 MLS/HR; Start 04/03/17 at 00:30 Hydromorphone HCl (Dilaudid) 0.5 mg Q4H PRN IV PAIN Last administered on 00:46; Admin Dose 0.5 MG; Start 04/03/17 at 00:30 Ondansetron HCl (Zofran Inj) 4 mg Q4H PRN IV NAUSEA AND/OR VOMITING Last administered on 04/03/17 00:46; Admin Dose 4 MG; Start 04/03/17 at 00:30 Ondansetron HCl (Zofran Inj) 4 mg Q6H PRN IV NAUSEA AND/OR VOMITING; Start at 03:30; Status UNV Pantoprazole (Protonix Iv) 40 mg DAILY@06 IV ; Start 04/03/17 at 06:00; Status JANUARYV BOBBY ESCOBAR Apr 03, 2017 03:09
[2017-04-03] MEDS ORDERED: NACL 0.9% 3 ML SYG IV SCH (03:30)
[2017-04-03 06:03] LABS: ADD SCAN DIFF NO
[2017-04-03 06:06] LABS: BASOPHILS % 0.1 % (0.0-2.0); EOSINOPHILS % 0.1 % (0.0-7.0); HEMATOCRIT 41.9 % (37.0-47.0); HEMOGLOBIN 13.4 g/dl (12.0-16.0); LYMPHOCYTES # 1.2 10^3/ul (0.8-2.9); LYMPHOCYTES % 7.2 % (15.0-51.0); MEAN CORPUSCULAR HEMOGLOBIN 29.5 pg (29.0-33.0); MEAN CORPUSCULAR VOLUME 92.3 fl (82.0-101.0); MEAN PLATELET VOLUME 9.7 fl (7.4-10.4); MONOCYTE # 0.9 10^3/ul (0.3-0.9); MONOCYTES % 5.4 % (0.0-11.0); NEUTROPHIL # 13.9 10^3/ul (1.6-7.5); NEUTROPHILS % 86.8 % (39.0-77.0); PLATELET COUNT 287 10^3/UL (140-415); RED BLOOD COUNT 4.54 10^6/ul (4.20-5.40); RED CELL DISTRIBUTION WIDTH 13.5 % (11.5-14.5)
[2017-04-03] MEDS: PANTOPRAZOLE 40 MG INJ IV SCH (06:14)
[2017-04-03 06:29] LABS: ALBUMIN 3.9 g/dl (3.3-4.9); ALBUMIN/GLOBULIN RATIO 1.44; BILIRUBIN,INDIRECT 0.6 mg/dl (0-1.1); BILIRUBIN,TOTAL 0.6 mg/dl (0.2-1.3); CALCIUM 8.3 mg/dl (8.4-10.2); CHOL/HDL RATIO 3.4 RATIO; CREATININE 0.63 mg/dl (0.44-1.00); POTASSIUM 4.5 mmol/L (3.5-5.1); TOTAL PROTEIN 6.6 g/dl (6.1-8.1)
[2017-04-03 06:31] LABS: PROTIME 13.2 Sec (12.2-14.2)
[2017-04-03 06:32] LABS: PARTIAL THROMBOPLASTIN TIME 26.4 Sec (25.0-35.0)
[2017-04-03 07:45] LABS: THYROID STIMULATING HORMONE 0.45 MIU/L (0.465-4.680)
[2017-04-03 09:03] VITALS: BP 134/80; RESP 18
[2017-04-03] MEDS: CIPROFLOXACIN 400MG/D5W 200 ML IVPB SCH ×2 (10:15→20:36)
[2017-04-03] MEDS ORDERED: hydrALAzine 20 MG INJ IV PRN (12:30)
[2017-04-03 14:34] VITALS: BP 132/73; RESP 20
[2017-04-03 20:43] VITALS: BP 138/75; RESP 20
--- NOTE | 2017-04-03 21:23 | RADRPT ---
PROCEDURE: MRCP. CLINICAL INDICATION: Pancreatitis. Elevated liver function tests. Gallstones. TECHNIQUE: MRCP was performed on a high field MRI scanner. Patient was examined without contrast. 3-D coronal rotating MIP images of the biliary tree are available for review. COMPARISON: HIDA scan 03/03/2017. MRI abdomen 03/02/2017. FINDINGS: Numerous filling defects are seen within the gallbladder lumen with the largest measuring 1.5 cm in greatest diameter. Imaging findings are compatible with cholelithiasis. The gallbladder is not dis tended. There is no gallbladder wall thickening or pericholecystic fluid. There is no intrahepatic or extrahepatic biliary duct dilatation. The common bile duct measures approximately 4-5 mm in gre atest diameter. There is no internal signal voids to suggest the presence of choledocholithiasis. There is no pancreatic duct dilatation. Extensive pancreatic and peripancreatic edema is now observ ed compatible with pancreatitis. There is no evidence of organized fluid collection. The liver is enlarged measuring approximately 20.0 cm in a craniocaudal dimension. The spleen and a drenal glands are unremarkable. The kidneys are symmetric in size and signal intensity. There is no hydronephrosis. The abdominal aorta is normal in caliber. There is no periaortic / retroperitoneal lymphadenopathy. The stomach is collapsed. The visualized portions of the small and large intestines are unremarkabl e. Trace ascites is observed. Body wall soft tissues are unremarkable. IMPRESSION: Cholelithiasis without evidence of acute cholecystitis. No evidence of choledocholithiasis or biliary tract obstruction. Extensive pancreatic and peripancreatic edema compatible with acute pancreatitis. No evidence of or ganized fluid collection. RPTAT: HLST .Josselyn Su MD, Date Time Electronically viewed and signed by .Josselyn Su MD, on 04/03/2017 21:22 .T/
[2017-04-04] MEDS: HYDROmorphONE 1 MG/ML SYG IV PRN ×6 (01:11→21:02)
[2017-04-04 02:00] VITALS: BP 113/65; RESP 20
[2017-04-04] MEDS: SOD CHLORIDE 0.9% 1,000 ML IV SCH ×2 (02:36→16:53)
[2017-04-04] MEDS: PANTOPRAZOLE 40 MG INJ IV SCH (04:58)
[2017-04-04 06:36] LABS: ADD SCAN DIFF NO
[2017-04-04 06:51] LABS: BASOPHILS % 0.2 % (0.0-2.0); EOSINOPHILS # 0.1 10^3/ul (0.0-0.5); EOSINOPHILS % 0.4 % (0.0-7.0); HEMATOCRIT 40.4 % (37.0-47.0); HEMOGLOBIN 12.9 g/dl (12.0-16.0); LYMPHOCYTES # 1.2 10^3/ul (0.8-2.9); LYMPHOCYTES % 5.3 % (15.0-51.0); MEAN CORPUSCULAR HEMOGLOBIN 29.5 pg (29.0-33.0); MEAN CORPUSCULAR HGB CONC 31.9 g/dl (32.0-37.0); MEAN CORPUSCULAR VOLUME 92.4 fl (82.0-101.0); MONOCYTE # 1.2 10^3/ul (0.3-0.9); MONOCYTES % 5.3 % (0.0-11.0); NEUTROPHIL # 19.8 10^3/ul (1.6-7.5); NEUTROPHILS % 88.1 % (39.0-77.0); PLATELET COUNT 261 10^3/UL (140-415); RED BLOOD COUNT 4.37 10^6/ul (4.20-5.40); RED CELL DISTRIBUTION WIDTH 13.6 % (11.5-14.5); WHITE BLOOD COUNT 22.4 10^3/ul (4.8-10.8)
[2017-04-04 07:06] LABS: ALBUMIN/GLOBULIN RATIO 1.2; BILIRUBIN,INDIRECT 0.7 mg/dl (0-1.1); BILIRUBIN,TOTAL 0.7 mg/dl (0.2-1.3); CALCIUM 8.3 mg/dl (8.4-10.2); CREATININE 0.46 mg/dl (0.44-1.00); POTASSIUM 3.5 mmol/L (3.5-5.1); TOTAL PROTEIN 5.5 g/dl (6.1-8.1)
[2017-04-04 07:15] VITALS: BP 122/69; RESP 16
[2017-04-04 07:22] LABS: AMYLASE 451 U/L (11-123)
[2017-04-04] MEDS: CIPROFLOXACIN 400MG/D5W 200 ML IVPB SCH (08:09)
--- NOTE | 2017-04-04 11:10 | CONS ---
Date/Time of Note Date/Time of Note DATE: 04/04/17 TIME: 10:56 Assessment/Plan Assessment/Plan Additional Assessment/Plan Assessment * Abdominal pain Gallstone pancreatitis MRCP Cholelithiasis without evidence of acute cholecystitis. No evidence of choledocholithiasis or biliary tract obstruction. Extensive pancreatic and peripancreatic edema compatible with acute pancreatitis. No evidence of organized fluid collection. Plan * continue present management * trend lipase and liver enzymes * clear liquids * adequate pain control * Surgery consult Consultation Date/Type/Reason Admit Date/Time Apr 02, 2017 at 22:29 Date of Consultation: Apr 04, 2017 Type of Consultation: Gastroenterology Reason for Consultation gallstone pancreatitis Referring Provider: BOBBY ESCOBAR Hx of Present Illness 51 year old female previously admitted last February 2017 because of gallstone pancreatitis presented in [facility] because of right upper quadrant pain ,nausea and vomiting,Subsequent workup revealed gallstone pancreatitis and subsequently transferred to our hospital.Laboratory workup revealed lipase level 2926 now 1234,AST 59,ALT 123,alkaline phosphatase 94,.CBC showed leukocytosis 16 going to 22.4,[id number],[id number].MRCP Cholelithiasis without evidence of acute cholecystitis. No evidence of choledocholithiasis or biliary tract obstruction.Extensive pancreatic and peripancreatic edema compatible with acute pancreatitis. No evidence of organized fluid collection. Presently still with mild abdominal pain ,no nausea nor vomiting. Constitutional: improved, no complaints Eyes: no complaints ENT: no complaints Respiratory: no complaints Cardiovascular: no complaints Gastrointestinal: nausea, no complaints, pain, vomiting Genitourinary: no complaints Musculoskeletal: no complaints Skin: no complaints Neurologic: no complaints Endocrine: no complaints Lymphatic: no complaints Psychological: nl mood/affect, no complaints Immunologic: no complaints Past Medical History Medical History: gallstones Past Surgical History Past Surgical Hx: no surgical history Family History Significant Family History: no pertinent family hx Social History Alcohol Use: none Smoking Status: Never smoker Drug Use: none Exam/Review of Systems Vital Signs Vitals Vital Signs Date Time Temp Pulse Resp B/P Pulse Ox O2 Delivery O2 Flow Rate FiO2 04/04/17 07:15 98.7 101 16 122/69 94 04/02/17 23:00 Room Air Intake and Output 04/03/17 04/03/17 04/04/17 15:00 23:00 07:00 Intake Total 800 ml 700 ml 780 ml Output Total 500 ml 700 ml Balance 800 ml 200 ml 80 ml Exam Constitutional: alert, oriented, well developed Psych: nl mood/affect, no complaints Head: atraumatic, normocephalic Eyes: PERRL, nl conjunctiva, nl sclera Neck: non-tender, supple Respiratory: clear to auscultation, normal air movement Cardiovascular: nl pulses, regular rate and rhythm Gastrointestinal: nl liver, spleen, non-tender, soft, No rebound or guarding Musculoskeletal: nl extremities to inspection, nl gait and stance Extremities: normal pulses Neurological: nl mental status, nl speech, nl strength Skin: nl turgor, No rash or lesions Lymph: nl lymph nodes Results Result Diagram: 04/04/1753004/04/17530 Results 24 hrs Laboratory Tests Test 04/04/17 05:31 White Blood Count 22.4 #H Red Blood Count 4.37 Hemoglobin 12.9 Hematocrit 40.4 Mean Corpuscular Volume 92.4 Mean Corpuscular Hemoglobin 29.5 Mean Corpuscular Hemoglobin Concent 31.9 L Red Cell Distribution Width 13.6 Platelet Count 261 Mean Platelet Volume 10.0 Neutrophils % 88.1 H Lymphocytes % 5.3 L Monocytes % 5.3 Eosinophils % 0.4 Basophils % 0.2 Nucleated Red Blood Cells % 0.0 Neutrophils # 19.8 H Lymphocytes # 1.2 Monocytes # 1.2 H Eosinophils # 0.1 Basophils # 0.0 Nucleated Red Blood Cells # 0.0 Sodium Level 131 L Potassium Level 3.5 Chloride Level 102 Carbon Dioxide Level 27 Anion Gap 6 L Blood Urea Nitrogen 12 Creatinine 0.46 Glucose Level 96 Calcium Level 8.3 L Phosphorus Level 2.0 L Magnesium Level 2.0 Total Bilirubin 0.7 Direct Bilirubin 0.00 Indirect Bilirubin 0.7 Aspartate Amino Transf (AST/SGOT) 59 H Alanine Aminotransferase (ALT/SGPT) 123 H Alkaline Phosphatase 94 Total Protein 5.5 #L Albumin 3.0 L Globulin 2.50 Albumin/Globulin Ratio 1.20 Amylase Level 451 H Lipase 1234 H Medications Medications Current Medications Sodium Chloride (NS) 1,000 ml @ 100 mls/hr Q10H IV Last administered on t 02:36; Admin Dose 100 MLS/HR; Start 04/03/17 at 00:30 Hydromorphone HCl (Dilaudid) 0.5 mg Q4H PRN IV PAIN Last administered on 09:02; Admin Dose 0.5 MG; Start 04/03/17 at 00:30 Ondansetron HCl (Zofran Inj) 4 mg Q6H PRN IV NAUSEA AND/OR VOMITING; Start at 03:30 Pantoprazole 40 mg 40 mg DAILY@06 IV Last administered on 04/04/17 04:58; Admin Dose 40 MG; Start 04/03/17 at 06:00 Ciprofloxacin/ Dextrose (Cipro Ivpb) 200 ml @ 200 mls/hr Q12 IVPB Last administered on 04/04/17 08:09; Admin Dose 200 MLS/HR; Start 04/03/17 at 09:00 Hydralazine HCl (Apresoline) 10 mg Q6H PRN IV SBP>160; Start 04/03/17 at 12:30 MARIO SANDERS MD Apr 04, 2017 11:07
[2017-04-04 14:03] VITALS: BP 109/59; RESP 18
--- NOTE | 2017-04-04 14:56 | PN ---
Date/Time of Note Date/Time of Note DATE: 04/04/17 TIME: 14:54 Assessment/Plan VTE Prophylaxis VTE Prophylaxis Intervention: SCD's Lines/Catheters [facility] Type [facility]from [facility]): Peripheral IV Urinary Cath still in place: No Assessment/Plan Chief Complaint/Hosp Course 1. Gallstone pancreatitis. Continue pain control. Dietary restrictions. Continue antibiotics because of underlying leukocytosis and febrile illness. The patient being followed by gastroenterology. 2. Cholelithiasis. MRCP negative for any choledocholithiasis. Will call general surgery as per gastroenterology's request. 3. Transaminitis without hyperbilirubinemia. Most probably secondary to #1 and #2. Management as per #1 and #2. 4. Fluids, electrolytes, and nutrition. Continue IV hydration. Diet as per gastroenterology. 5. DVT prophylaxis. Bilateral sequential compression devices. 6. Gastrointestinal prophylaxis. Proton pump inhibitors. 7. Plan. The patient has worsening leukocytosis. Patient had a febrile episode. Will escalate antibiotic therapy. Will obtain pancultures. Obtain surgical consult. Case discussed with Dr. Owen. Problems: Subjective 24 Hr Interval Summary Free Text/Dictation The patient had a febrile episode earlier. Exam/Review of Systems Vital Signs Vitals Vital Signs Date Time Temp Pulse Resp B/P Pulse Ox O2 Delivery O2 Flow Rate FiO2 04/04/17 13:57 100.3 04/04/17 07:15 101 16 122/69 94 04/02/17 23:00 Room Air Intake and Output 04/03/17 04/03/17 04/04/17 15:00 23:00 07:00 Intake Total 800 ml 700 ml 780 ml Output Total 500 ml 700 ml Balance 800 ml 200 ml 80 ml Exam General: Obese 51 year-old female lying in bed in no apparent distress. HEENT: Normocephalic, atraumatic. Eyes: Anicteric sclerae, conjunctivae clear. ENT: Nasal septum midline, oral mucosa moist. Neck supple, no JVD noticed. Respiratory: Bilaterally clear breath sounds. No use of accessory muscles of respiration. No adventitious breath sounds. Cardiovascular: S1, S2 heard. No murmurs or gallops. Abdomen: Soft and nondistended. Bowel sounds positive in all 4 quadrants. LUQ tenderness. Genitourinary: Deferred. Extremities: No cyanosis, no clubbing, no edema. Peripheral pulses palpable. Neurologic: Cranial nerves II through XII grossly intact. The patient is awake, alert, and oriented. Skin: Normal skin turgor. No skin rashes. Results Result Diagram: 04/04/1753004/04/1731 Results 24 hrs Laboratory Tests Test 04/04/17 05:31 White Blood Count 22.4 #H Red Blood Count 4.37 Hemoglobin 12.9 Hematocrit 40.4 Mean Corpuscular Volume 92.4 Mean Corpuscular Hemoglobin 29.5 Mean Corpuscular Hemoglobin Concent 31.9 L Red Cell Distribution Width 13.6 Platelet Count 261 Mean Platelet Volume 10.0 Neutrophils % 88.1 H Lymphocytes % 5.3 L Monocytes % 5.3 Eosinophils % 0.4 Basophils % 0.2 Nucleated Red Blood Cells % 0.0 Neutrophils # 19.8 H Lymphocytes # 1.2 Monocytes # 1.2 H Eosinophils # 0.1 Basophils # 0.0 Nucleated Red Blood Cells # 0.0 Sodium Level 131 L Potassium Level 3.5 Chloride Level 102 Carbon Dioxide Level 27 Anion Gap 6 L Blood Urea Nitrogen 12 Creatinine 0.46 Glucose Level 96 Hemoglobin A1c 6.0 H Calcium Level 8.3 L Phosphorus Level 2.0 L Magnesium Level 2.0 Total Bilirubin 0.7 Direct Bilirubin 0.00 Indirect Bilirubin 0.7 Aspartate Amino Transf (AST/SGOT) 59 H Alanine Aminotransferase (ALT/SGPT) 123 H Alkaline Phosphatase 94 Total Protein 5.5 #L Albumin 3.0 L Globulin 2.50 Albumin/Globulin Ratio 1.20 Amylase Level 451 H Lipase 1234 H Medications Medications Current Medications Sodium Chloride (NS) 1,000 ml @ 100 mls/hr Q10H IV Last administered on 02:36; Admin Dose 100 MLS/HR; Start 04/03/17 at 00:30 Hydromorphone HCl (Dilaudid) 0.5 mg Q4H PRN IV PAIN Last administered on 13:08; Admin Dose 0.5 MG; Start 04/03/17 at 00:30 Ondansetron HCl (Zofran Inj) 4 mg Q6H PRN IV NAUSEA AND/OR VOMITING; Start at 03:30 Pantoprazole 40 mg 40 mg DAILY@06 IV Last administered on 04/04/17 04:58; Admin Dose 40 MG; Start 04/03/17 at 06:00 Ciprofloxacin/ Dextrose (Cipro Ivpb) 200 ml @ 200 mls/hr Q12 IVPB Last administered on 04/04/17t 08:09; Admin Dose 200 MLS/HR; Start 04/03/17 at 09:00 Hydralazine HCl (Apresoline) 10 mg Q6H PRN IV SBP>160; Start 04/03/17 at 12:30 RANDA LOPEZ [employer] Apr 04, 2017 14:56
--- NOTE | 2017-04-04 15:51 | CONS ---
Date/Time of Note Date/Time of Note DATE: 04/04/17 TIME: 15:45 Assessment/Plan Assessment/Plan Chief Complaint/Hosp Course 51-year-old female with gallstone pancreatitis * MRCP negative for choledocholithiasis * Monitor amylase, lipase and LFTs * Leukocytosis. Likely systemic inflammatory response syndrome from pancreatitis * Would recommend laparoscopic cholecystectomy; possible open as definitive treatment upon near normalization of lipase levels and within 6 weeks of pancreatitis episode. Problems: Consultation Date/Type/Reason Admit Date/Time Apr 02, 2017 at 22:29 Date of Consultation: Apr 04, 2017 Type of Consultation: GENERAL SURGERY Reason for Consultation Gallstone pancreatitis Hx of Present Illness The patient is a morbidly obese 51-year-old female who was transferred from [place] with approximately 4 days of epigastric pain. She had a recent admission to [facility] for symptomatic cholelithiasis. She was managed conservatively at that time with complete resolution of her symptoms. She was discharged with plans for outpatient cholecystectomy. However pain recurred causing her to present to [facility]. She was found there to have gallstones on ultrasound with no evidence of cholecystitis. Her lipase was 2820. There was mild elevation of her transaminases within normal bilirubin level. Urinalysis with a positive leukoesterase. White blood cell count of 16 on admission. Currently she states that her pain is a little better. 14 point review of systems was conducted and was negative except for that which is mentioned in HPI Constitutional: improved, no complaints Eyes: no complaints ENT: no complaints Respiratory: no complaints Cardiovascular: no complaints Gastrointestinal: nausea, no complaints, pain, vomiting Genitourinary: no complaints Musculoskeletal: no complaints Skin: no complaints Neurologic: no complaints Endocrine: no complaints Lymphatic: no complaints Psychological: nl mood/affect, no complaints Immunologic: no complaints Past Medical History Medical History: gallstones Past Surgical History Past Surgical Hx: other () Social History Alcohol Use: none Smoking Status: Never smoker Drug Use: none Exam/Review of Systems Vital Signs Vitals Vital Signs Date Time Temp Pulse Resp B/P Pulse Ox O2 Delivery O2 Flow Rate FiO2 04/04/17 14:03 100.3 107 18 109/59 94 04/02/17 23:00 Room Air Intake and Output 04/03/17 04/03/17 04/04/17 15:00 23:00 07:00 Intake Total 800 ml 700 ml 780 ml Output Total 500 ml 700 ml Balance 800 ml 200 ml 80 ml Exam GENERAL: Awake, alert, oriented x 3. No acute distress. SKIN: No jaundice. HEENT: PERRLA, EOMI, No Scleral Icterus NECK: Supple without JVD CARDIOVASCULAR: S1S2, regular rate and rhythm. No murmurs appreciated. RESPIRATORY: Clear to auscultation bilaterally. ABDOMEN: Obese, soft, bowel sounds present, nondistended, there is mild epigastric tenderness to palpation. There is no rebound or guarding. EXTREMITIES: Free range of motion x 4. No cyanosis, edema, or clubbing. NEUROLOGIC: Cranial nerves II-XII are intact. Sensation is intact grossly. Results Result Diagram: 04/04/1731 04/04/1731 Results 24 hrs Laboratory Tests Test 04/04/17 05:31 White Blood Count 22.4 #H Red Blood Count 4.37 Hemoglobin 12.9 Hematocrit 40.4 Mean Corpuscular Volume 92.4 Mean Corpuscular Hemoglobin 29.5 Mean Corpuscular Hemoglobin Concent 31.9 L Red Cell Distribution Width 13.6 Platelet Count 261 Mean Platelet Volume 10.0 Neutrophils % 88.1 H Lymphocytes % 5.3 L Monocytes % 5.3 Eosinophils % 0.4 Basophils % 0.2 Nucleated Red Blood Cells % 0.0 Neutrophils # 19.8 H Lymphocytes # 1.2 Monocytes # 1.2 H Eosinophils # 0.1 Basophils # 0.0 Nucleated Red Blood Cells # 0.0 Sodium Level 131 L Potassium Level 3.5 Chloride Level 102 Carbon Dioxide Level 27 Anion Gap 6 L Blood Urea Nitrogen 12 Creatinine 0.46 Glucose Level 96 Hemoglobin A1c 6.0 H Calcium Level 8.3 L Phosphorus Level 2.0 L Magnesium Level 2.0 Total Bilirubin 0.7 Direct Bilirubin 0.00 Indirect Bilirubin 0.7 Aspartate Amino Transf (AST/SGOT) 59 H Alanine Aminotransferase (ALT/SGPT) 123 H Alkaline Phosphatase 94 Total Protein 5.5 #L Albumin 3.0 L Globulin 2.50 Albumin/Globulin Ratio 1.20 Amylase Level 451 H Lipase 1234 H Medications Medications Current Medications Sodium Chloride (NS) 1,000 ml @ 100 mls/hr Q10H IV Last administered on t 02:36; Admin Dose 100 MLS/HR; Start 04/03/17 at 00:30 Hydromorphone HCl (Dilaudid) 0.5 mg Q4H PRN IV PAIN Last administered on 13:08; Admin Dose 0.5 MG; Start 04/03/17 at 00:30 Ondansetron HCl (Zofran Inj) 4 mg Q6H PRN IV NAUSEA AND/OR VOMITING; Start at 03:30 Pantoprazole (Protonix Iv) 40 mg DAILY@06 IV Last administered on 04/04/17 04: 58; Admin Dose 40 MG; Start 04/03/17 at 06:00 Hydralazine HCl 10 mg 10 mg Q6H PRN IV SBP>160; Start 04/03/17 at 12:30 Piperacillin Sod/ Tazobactam Sod (Zosyn 3.375gm/ 100 ml (Pmx)) 100 ml @ 200 mls /hr Q8 IVPB ; Start 04/04/17 at 15:00 Procedures Procedures PROCEDURE: MRCP. CLINICAL INDICATION: Pancreatitis. Elevated liver function tests. Gallstones. TECHNIQUE: MRCP was performed on a high field MRI scanner. Patient was examined without contrast. 3-D coronal rotating MIP images of the biliary tree are available for review. COMPARISON: HIDA scan 03/03/2017. MRI abdomen 03/02/2017. FINDINGS: Numerous filling defects are seen within the gallbladder lumen with the largest measuring 1.5 cm in greatest diameter. Imaging findings are compatible with cholelithiasis. The gallbladder is not distended. There is no gallbladder wall thickening or pericholecystic fluid. There is no intrahepatic or extrahepatic biliary duct dilatation. The common bile duct measures approximately 4-5 mm in greatest diameter. There is no internal signal voids to suggest the presence of choledocholithiasis. There is no pancreatic duct dilatation. Extensive pancreatic and peripancreatic edema is now observed compatible with pancreatitis. There is no evidence of organized fluid collection. The liver is enlarged measuring approximately 20.0 cm in a craniocaudal dimension. The spleen and adrenal glands are unremarkable. The kidneys are symmetric in size and signal intensity. There is no hydronephrosis. The abdominal aorta is normal in caliber. There is no periaortic / retroperitoneal lymphadenopathy. The stomach is collapsed. The visualized portions of the small and large intestines are unremarkable. Trace ascites is observed. Body wall soft tissues are unremarkable. IMPRESSION: Cholelithiasis without evidence of acute cholecystitis. No evidence of choledocholithiasis or biliary tract obstruction. Extensive pancreatic and peripancreatic edema compatible with acute pancreatitis. No evidence of organized fluid collection. RPTAT: HLST .Josselyn Su MD, Date Time Electronically viewed and signed by .Josselyn Su MD, MD on 04/03/2017 21:22 .T/ CC: BOBBY ESCOBAR MICHAEL A. MD Apr 04, 2017 15:51
[2017-04-04] MEDS: PIPER-TAZO 3.375 GM IV (PMX) 100 ML IVPB SCH ×2 (16:53→22:10)
[2017-04-04 20:25] VITALS: BP 123/66; RESP 17
[2017-04-04 20:35] LABS: ADD UMIC YES; UR ASCORBIC ACID NEGATIVE (NEGATIVE); UR BACTERIA FEW /HPF (NONE SEEN); UR BILIRUBIN (Dip) NEGATIVE (NEGATIVE); UR BLOOD (Dip) 2+ mg/dL (NEGATIVE); UR CLARITY SLIGHTLY CLOUDY (CLEAR); UR COLOR YELLOW (YELLOW); UR GLUCOSE (Dip) NEGATIVE (NEGATIVE); UR KETONES (Dip) 2+ mg/dL (NEGATIVE); UR LEUKOCYTE ESTERASE (Dip) 1+ Leu/ul (NEGATIVE); UR MUCUS FEW /HPF (NONE SEEN); UR NITRITE (Dip) NEGATIVE (NEGATIVE); UR RBC 15 /HPF (0-5); UR SPECIFIC GRAVITY (Dip) 1.026 (1.003-1.030); UR SQUAMOUS EPITHELIAL CELL FEW /HPF (FEW); UR TOTAL PROTEIN (Dip) 2+ mg/dl (NEGATIVE); UR UROBILINOGEN (Dip) NEGATIVE (NEGATIVE)
[2017-04-05] MEDS: HYDROmorphONE 1 MG/ML SYG IV PRN ×6 (01:07→22:12)
[2017-04-05 02:08] VITALS: BP 113/64; RESP 16
[2017-04-05] MEDS: SOD CHLORIDE 0.9% 1,000 ML IV SCH ×3 (04:36→23:41)
[2017-04-05] MEDS: PANTOPRAZOLE 40 MG INJ IV SCH (05:49)
[2017-04-05] MEDS: PIPER-TAZO 3.375 GM IV (PMX) 100 ML IVPB SCH ×3 (05:49→22:08)
[2017-04-05 06:09] LABS: ADD SCAN DIFF NO
[2017-04-05 06:14] LABS: BASOPHILS % 0.1 % (0.0-2.0); EOSINOPHILS # 0.2 10^3/ul (0.0-0.5); EOSINOPHILS % 0.9 % (0.0-7.0); HEMOGLOBIN 11.4 g/dl (12.0-16.0); LYMPHOCYTES # 1.5 10^3/ul (0.8-2.9); MEAN CORPUSCULAR HEMOGLOBIN 29.3 pg (29.0-33.0); MEAN CORPUSCULAR HGB CONC 31.7 g/dl (32.0-37.0); MEAN CORPUSCULAR VOLUME 92.5 fl (82.0-101.0); MEAN PLATELET VOLUME 9.9 fl (7.4-10.4); MONOCYTES % 4.8 % (0.0-11.0); NEUTROPHIL # 18.2 10^3/ul (1.6-7.5); NEUTROPHILS % 86.4 % (39.0-77.0); PLATELET COUNT 229 10^3/UL (140-415); RED BLOOD COUNT 3.89 10^6/ul (4.20-5.40); RED CELL DISTRIBUTION WIDTH 13.4 % (11.5-14.5); WHITE BLOOD COUNT 21.1 10^3/ul (4.8-10.8)
[2017-04-05 06:56] LABS: ALBUMIN 3.2 g/dl (3.3-4.9); ALBUMIN/GLOBULIN RATIO 1.18; BILIRUBIN,INDIRECT 0.6 mg/dl (0-1.1); BILIRUBIN,TOTAL 0.6 mg/dl (0.2-1.3); CALCIUM 7.8 mg/dl (8.4-10.2); CREATININE 0.54 mg/dl (0.44-1.00); POTASSIUM 3.8 mmol/L (3.5-5.1); TOTAL PROTEIN 5.9 g/dl (6.1-8.1)
[2017-04-05 07:00] LABS: MAGNESIUM 1.9 mg/dl (1.7-2.5); PHOSPHORUS 2.1 mg/dl (2.5-4.9)
[2017-04-05 08:00] VITALS: BP 118/70; RESP 18
[2017-04-05 09:53] LABS: AMYLASE 224 U/L (11-123)
--- NOTE | 2017-04-05 10:40 | PN ---
Date/Time of Note Date/Time of Note DATE: 04/05/17 TIME: 10:38 Assessment/Plan VTE Prophylaxis VTE Prophylaxis Intervention: SCD's Lines/Catheters IV C[facility]ter Type (from [facility]): Peripheral IV Urinary Cath still in place: No Assessment/Plan Chief Complaint/Hosp Course 1. Gallstone pancreatitis. Continue pain control. Continue dietary restrictions. Continue antibiotics because of underlying leukocytosis and febrile illness. The patient being followed by gastroenterology. 2. Cholelithiasis. MRCP negative for any choledocholithiasis. General surgery on the case and is recommending cholecystectomy when the patient's pancreatic enzyme levels are trending down. 3. Transaminitis without hyperbilirubinemia. Most probably secondary to #1 and #2. Management as per #1 and #2. 4. Fluids, electrolytes, and nutrition. Continue IV hydration. Clear liquid diet. 5. DVT prophylaxis. Bilateral sequential compression devices. 6. Gastrointestinal prophylaxis. Proton pump inhibitors. 7. Plan. Continue empiric antibiotics. Trend pancreatic enzyme levels. Replete phosphorus. Case discussed with Dr. Owen. Problems: Subjective 24 Hr Interval Summary Free Text/Dictation Patient had another episode of febrile illness last night. Complains of minimal abdominal pain. Exam/Review of Systems Vital Signs Vitals Vital Signs Date Time Temp Pulse Resp B/P Pulse Ox O2 Delivery O2 Flow Rate FiO2 04/05/17 08:00 99.0 95 18 118/70 95 04/02/17 23:00 Room Air Intake and Output 04/04/17 04/04/17 04/05/17 15:00 23:00 07:00 Intake Total 200 ml 1160 ml 1750 ml Output Total 500 ml 1150 ml Balance 200 ml 660 ml 600 ml Exam General: Obese 51 year-old female lying in bed in no apparent distress. HEENT: Normocephalic, atraumatic. Eyes: Anicteric sclerae, conjunctivae clear. ENT: Nasal septum midline, oral mucosa moist. Neck supple, no JVD noticed. Respiratory: Bilaterally clear breath sounds. No use of accessory muscles of respiration. No adventitious breath sounds. Cardiovascular: S1, S2 heard. No murmurs or gallops. Abdomen: Soft and nondistended. Bowel sounds positive in all 4 quadrants. LUQ tenderness. Genitourinary: Deferred. Extremities: No cyanosis, no clubbing, no edema. Peripheral pulses palpable. Neurologic: Cranial nerves II through XII grossly intact. The patient is awake, alert, and oriented. Skin: Normal skin turgor. No skin rashes. Results Result Diagram: 04/05/17 0537 04/05/17 0519 Results 24 hrs Laboratory Tests Test 04/04/17 19:45 04/05/17 05:19 04/05/17 05:37 Urine Color YELLOW Urine Clarity SLIGHTLY CLOUDY A Urine pH 6.0 Urine Specific [place] 1.026 Urine Ketones 2+ H Urine Nitrite NEGATIVE Urine Bilirubin NEGATIVE Urine Urobilinogen NEGATIVE Urine Leukocyte Esterase 1+ H Urine Microscopic RBC 15 H Urine Microscopic WBC 40 H Urine Squamous Epithelial Cells FEW Urine Bacteria FEW A Urine Mucus FEW A Urine Hemoglobin 2+ H Urine Glucose NEGATIVE Urine Total Protein 2+ H Sodium Level 137 Potassium Level 3.8 Chloride Level 101 Carbon Dioxide Level 27 Anion Gap 13 Blood Urea Nitrogen 10 Creatinine 0.54 Glucose Level 90 Hemoglobin A1c 5.9 Calcium Level 7.8 L Total Bilirubin 0.6 Direct Bilirubin 0.00 Indirect Bilirubin 0.6 Aspartate Amino Transf (AST/SGOT) 35 Alanine Aminotransferase (ALT/SGPT) 82 H Alkaline Phosphatase 79 Total Protein 5.9 L Albumin 3.2 L Globulin 2.70 Albumin/Globulin Ratio 1.18 White Blood Count 21.1 H Red Blood Count 3.89 L Hemoglobin 11.4 L Hematocrit 36.0 L Mean Corpuscular Volume 92.5 Mean Corpuscular Hemoglobin 29.3 Mean Corpuscular Hemoglobin Concent 31.7 L Red Cell Distribution Width 13.4 Platelet Count 229 Mean Platelet Volume 9.9 Neutrophils % 86.4 H Lymphocytes % 7.0 L Monocytes % 4.8 Eosinophils % 0.9 Basophils % 0.1 Nucleated Red Blood Cells % 0.0 Neutrophils # 18.2 H Lymphocytes # 1.5 Monocytes # 1.0 H Eosinophils # 0.2 Basophils # 0.0 Nucleated Red Blood Cells # 0.0 Phosphorus Level 2.1 L Magnesium Level 1.9 Amylase Level 224 #H Lipase 253 Medications Medications Current Medications Sodium Chloride (NS) 1,000 ml @ 100 mls/hr Q10H IV Last administered on t 04:36; Admin Dose 100 MLS/HR; Start 04/03/17 at 00:30 Hydromorphone HCl (Dilaudid) 0.5 mg Q4H PRN IV PAIN Last administered on 09:54; Admin Dose 0.5 MG; Start 04/03/17 at 00:30 Ondansetron HCl (Zofran Inj) 4 mg Q6H PRN IV NAUSEA AND/OR VOMITING; Start at 03:30 Pantoprazole (Protonix Iv) 40 mg DAILY@06 IV Last administered on 04/05/17 05: 49; Admin Dose 40 MG; Start 04/03/17 at 06:00 Hydralazine HCl 10 mg 10 mg Q6H PRN IV SBP>160; Start 04/03/17 at 12:30 Piperacillin Sod/ Tazobactam Sod (Zosyn 3.375gm/ 100 ml (Pmx)) 100 ml @ 200 mls /hr Q8 IVPB Last administered on 04/05/17 05:49; Admin Dose 200 MLS/HR; Start 04/04/17 at 15:00 RANDA LOPEZ NP Apr 05, 2017 10:40
--- NOTE | 2017-04-05 11:32 | PN ---
Date/Time of Note Date/Time of Note DATE: 04/05/17 TIME: 11:29 Assessment/Plan VTE Prophylaxis VTE Prophylaxis Intervention: SCD's Lines/Catheters IV [facility] Type (from [facility]): Peripheral IV Urinary Cath still in place: No Assessment/Plan Assessment/Plan Assessment * Abdominal pain Gallstone pancreatitis MRCP Cholelithiasis without evidence of acute cholecystitis. No evidence of choledocholithiasis or biliary tract obstruction. Extensive pancreatic and peripancreatic edema compatible with acute pancreatitis. No evidence of organized fluid collection. Plan * continue present management * trend lipase and liver enzymes * clear liquids * adequate pain control * Surgery consult Subjective 24 Hr Interval Summary Free Text/Dictation Course reviewed with nursing staff Patient continues to experience abdominal pain although less intense Low-grade fever last night Exam/Review of Systems Vital Signs Vitals Vital Signs Date Time Temp Pulse Resp B/P Pulse Ox O2 Delivery O2 Flow Rate FiO2 04/05/17 08:00 99.0 95 18 118/70 95 04/02/17 23:00 Room Air Intake and Output 04/04/17 04/04/17 04/05/17 15:00 23:00 07:00 Intake Total 200 ml 1160 ml 1750 ml Output Total 500 ml 1150 ml Balance 200 ml 660 ml 600 ml Exam Constitutional: alert, obese, oriented, well developed Head: atraumatic, normocephalic Neck: non-tender, supple Respiratory: clear to auscultation, normal air movement Cardiovascular: nl pulses, regular rate and rhythm Gastrointestinal: bowel sounds, distended, tender (Upper abdominal tenderness) , No ascites, No rebound or guarding Musculoskeletal: nl extremities to inspection Results Result Diagram: 04/05/17 0537 04/05/17 0519 Results 24 hrs Laboratory Tests Test 04/04/17 19:45 04/05/17 05:19 04/05/17 05:37 Urine Color YELLOW Urine Clarity SLIGHTLY CLOUDY A Urine pH 6.0 Urine Specific [place] 1.026 Urine Ketones 2+ H Urine Nitrite NEGATIVE Urine Bilirubin NEGATIVE Urine Urobilinogen NEGATIVE Urine Leukocyte Esterase 1+ H Urine Microscopic RBC 15 H Urine Microscopic WBC 40 H Urine Squamous Epithelial Cells FEW Urine Bacteria FEW A Urine Mucus FEW A Urine Hemoglobin 2+ H Urine Glucose NEGATIVE Urine Total Protein 2+ H Sodium Level 137 Potassium Level 3.8 Chloride Level 101 Carbon Dioxide Level 27 Anion Gap 13 Blood Urea Nitrogen 10 Creatinine 0.54 Glucose Level 90 Hemoglobin A1c 5.9 Calcium Level 7.8 L Total Bilirubin 0.6 Direct Bilirubin 0.00 Indirect Bilirubin 0.6 Aspartate Amino Transf (AST/SGOT) 35 Alanine Aminotransferase (ALT/SGPT) 82 H Alkaline Phosphatase 79 Total Protein 5.9 L Albumin 3.2 L Globulin 2.70 Albumin/Globulin Ratio 1.18 White Blood Count 21.1 H Red Blood Count 3.89 L Hemoglobin 11.4 L Hematocrit 36.0 L Mean Corpuscular Volume 92.5 Mean Corpuscular Hemoglobin 29.3 Mean Corpuscular Hemoglobin Concent 31.7 L Red Cell Distribution Width 13.4 Platelet Count 229 Mean Platelet Volume 9.9 Neutrophils % 86.4 H Lymphocytes % 7.0 L Monocytes % 4.8 Eosinophils % 0.9 Basophils % 0.1 Nucleated Red Blood Cells % 0.0 Neutrophils # 18.2 H Lymphocytes # 1.5 Monocytes # 1.0 H Eosinophils # 0.2 Basophils # 0.0 Nucleated Red Blood Cells # 0.0 Phosphorus Level 2.1 L Magnesium Level 1.9 Amylase Level 224 #H Lipase 253 Medications Medications Current Medications Sodium Chloride (NS) 1,000 ml @ 100 mls/hr Q10H IV Last administered on 04:36; Admin Dose 100 MLS/HR; Start 04/03/17 at 00:30 Hydromorphone HCl (Dilaudid) 0.5 mg Q4H PRN IV PAIN Last administered on 09:54; Admin Dose 0.5 MG; Start 04/03/17 at 00:30 Ondansetron HCl (Zofran Inj) 4 mg Q6H PRN IV NAUSEA AND/OR VOMITING; Start at 03:30 Pantoprazole (Protonix Iv) 40 mg DAILY@06 IV Last administered on 04/05/17 05: 49; Admin Dose 40 MG; Start 04/03/17 at 06:00 Hydralazine HCl 10 mg 10 mg Q6H PRN IV SBP>160; Start 04/03/17 at 12:30 Piperacillin Sod/ Tazobactam Sod 100 ml @ 200 mls/hr Q8 IVPB Last administered on 04/05/17 05:49; Admin Dose 200 MLS/HR; Start 04/04/17 at 15:00 Sodium Phosphate/ Sodium Chloride (Sodium Phosphate/NS) 255 ml @ 63.75 mls/ hr ONCE ONCE IVPB ; Start 04/05/17 at 12:00; Stop 04/05/17 at 15:59 MARIO SANDERS MD Apr 05, 2017 11:31
[2017-04-05] MEDS ORDERED: SODIUM PHOSPHATE 20 MEQ in SOD CHLORIDE 0.9% 250 ML IVPB ONE (12:00)
[2017-04-05 14:05] VITALS: BP 114/57; RESP 18
--- NOTE | 2017-04-05 18:22 | PN ---
Date/Time of Note Date/Time of Note DATE: 04/05/17 TIME: 18:17 Assessment/Plan Lines/Catheters IV [facility] Type (from [facility]): Peripheral IV Mike in Place (from [facility]): No Assessment/Plan Assessment/Plan 51-year-old female with gallstone pancreatitis * MRCP negative for choledocholithiasis * Amylase, lipase and LFTs trending down. Continue to monitor * Leukocytosis. Likely systemic inflammatory response syndrome from pancreatitis * Pain control * Continue clear liquids as tolerated * Would recommend laparoscopic cholecystectomy; possible open as definitive treatment upon near normalization of lipase levels during this admission. Subjective 24 Hr Interval Summary Complains of abdominal pain which is controlled with IV narcotics. Tolerating clear liquids. Tmax 100.3 Exam/Review of Systems Vital Signs Vitals Vital Signs Date Time Temp Pulse Resp B/P Pulse Ox O2 Delivery O2 Flow Rate FiO2 04/05/17 14:05 99.4 100 18 114/57 97 04/02/17 23:00 Room Air Intake and Output 04/04/17 04/04/17 04/05/17 15:00 23:00 07:00 Intake Total 200 ml 1160 ml 1750 ml Output Total 500 ml 1150 ml Balance 200 ml 660 ml 600 ml Exam Free Text/Dictation GENERAL: Awake, alert, oriented x 3. No acute distress. SKIN: No jaundice. HEENT: PERRLA, EOMI, No Scleral Icterus CARDIOVASCULAR: S1S2, regular rate and rhythm. No murmurs appreciated. RESPIRATORY: Clear to auscultation bilaterally. ABDOMEN: Obese, soft, bowel sounds present, nondistended, there is epigastric tenderness to palpation. There is no rebound or guarding. EXTREMITIES: Free range of motion x 4. No cyanosis, edema, or clubbing. Results Result Diagram: 04/05/17 0537 04/05/17 0519 BILLIE SMALLWOOD MD Apr 05, 2017 18:21
[2017-04-05 20:10] VITALS: BP 117/61; RESP 16
[2017-04-06] MEDS: HYDROmorphONE 1 MG/ML SYG IV PRN ×6 (02:19→22:34)
[2017-04-06 02:29] VITALS: BP 121/75; RESP 16
[2017-04-06] MEDS: PIPER-TAZO 3.375 GM IV (PMX) 100 ML IVPB SCH ×3 (05:44→21:58)
[2017-04-06] MEDS: PANTOPRAZOLE 40 MG INJ IV SCH (05:45)
[2017-04-06 06:24] LABS: ADD SCAN DIFF NO
[2017-04-06 06:25] LABS: HEMATOCRIT 33.4 % (37.0-47.0); HEMOGLOBIN 10.8 g/dl (12.0-16.0); MEAN CORPUSCULAR HEMOGLOBIN 29.7 pg (29.0-33.0); MEAN CORPUSCULAR HGB CONC 32.3 g/dl (32.0-37.0); MEAN CORPUSCULAR VOLUME 91.8 fl (82.0-101.0); MEAN PLATELET VOLUME 9.7 fl (7.4-10.4); PLATELET COUNT 270 10^3/UL (140-415); RED BLOOD COUNT 3.64 10^6/ul (4.20-5.40); RED CELL DISTRIBUTION WIDTH 13.2 % (11.5-14.5); WHITE BLOOD COUNT 17.3 10^3/ul (4.8-10.8)
[2017-04-06 06:43] LABS: ALBUMIN 3.1 g/dl (3.3-4.9); ALBUMIN/GLOBULIN RATIO 1.14; BILIRUBIN,INDIRECT 0.5 mg/dl (0-1.1); BILIRUBIN,TOTAL 0.5 mg/dl (0.2-1.3); CREATININE 0.44 mg/dl (0.44-1.00); POTASSIUM 3.2 mmol/L (3.5-5.1); TOTAL PROTEIN 5.8 g/dl (6.1-8.1)
[2017-04-06 06:49] LABS: PHOSPHORUS 2.7 mg/dl (2.5-4.9)
[2017-04-06 07:15] LABS: AMYLASE 43 U/L (11-123)
[2017-04-06 07:39] LABS: LYMPHOCYTES # 1.7 10^3/ul (0.8-2.9); MONOCYTE # 0.7 10^3/ul (0.3-0.9); NEUTROPHIL # 14.5 10^3/ul (1.6-7.5); PLATELET ESTIMATE PLT APPEAR ADEQUATE
[2017-04-06 07:54] VITALS: BP 124/79; RESP 17
[2017-04-06] MEDS: SOD CHLORIDE 0.9% 1,000 ML IV SCH ×4 (08:30→22:17)
[2017-04-06] MEDS ORDERED: POTASSIUM CHLORIDE (SR) 20 MEQ TAB PO STA (10:15)
--- NOTE | 2017-04-06 10:18 | PN ---
Date/Time of Note Date/Time of Note DATE: 04/06/17 TIME: 10:17 Assessment/Plan VTE Prophylaxis VTE Prophylaxis Intervention: SCD's Lines/Catheters IV Catheter Type (from [facility]): Peripheral IV Urinary Cath still in place: No Assessment/Plan Chief Complaint/Hosp Course 1. Gallstone pancreatitis. Continue pain control. Continue antibiotics because of underlying leukocytosis and febrile illness. The patient being followed by gastroenterology and surgery. 2. Cholelithiasis. MRCP negative for any choledocholithiasis. General surgery on the case and is recommending cholecystectomy on this admission. 3. Transaminitis without hyperbilirubinemia. Most probably secondary to #1 and #2. Management as per #1 and #2. 4. Fluids, electrolytes, and nutrition. Continue IV hydration. Clear liquid diet. 5. DVT prophylaxis. Bilateral sequential compression devices. 6. Gastrointestinal prophylaxis. Proton pump inhibitors. 7. Plan. Continue empiric antibiotics. Replete potassium. Perioperative risk stratification: The patient is a 51-year-old female with no significant past medical history. She has underlying obesity with a BMI of 38.4 kg/m. Provided these factors, the patient is at mild to moderate risk for any perioperative medical complications. Given that, the benefits of any surgical intervention for her underlying symptomatic cholelithiasis would outweigh the risks. Case discussed with Dr. Owen. Problems: Subjective 24 Hr Interval Summary Free Text/Dictation Complains of minimal abdominal pain. Exam/Review of Systems Vital Signs Vitals Vital Signs Date Time Temp Pulse Resp B/P Pulse Ox O2 Delivery O2 Flow Rate FiO2 04/06/17 07:54 98.7 88 17 124/79 95 04/02/17 23:00 Room Air Intake and Output 04/05/17 04/05/17 04/06/17 15:00 23:00 07:00 Intake Total 100 ml 1445 ml 1850 ml Output Total 700 ml 1350 ml Balance 100 ml 745 ml 500 ml Exam General: Obese 51 year-old female lying in bed in no apparent distress. HEENT: Normocephalic, atraumatic. Eyes: Anicteric sclerae, conjunctivae clear. ENT: Nasal septum midline, oral mucosa moist. Neck supple, no JVD noticed. Respiratory: Bilaterally clear breath sounds. No use of accessory muscles of respiration. No adventitious breath sounds. Cardiovascular: S1, S2 heard. No murmurs or gallops. Abdomen: Soft and nondistended. Bowel sounds positive in all 4 quadrants. LUQ tenderness. Genitourinary: Deferred. Extremities: No cyanosis, no clubbing, no edema. Peripheral pulses palpable. Neurologic: Cranial nerves II through XII grossly intact. The patient is awake, alert, and oriented. Skin: Normal skin turgor. No skin rashes. Results Result Diagram: 04/06/1727 04/06/1727 Results 24 hrs Laboratory Tests Test 04/06/17 05:27 04/06/17 05:32 White Blood Count 17.3 H Red Blood Count 3.64 L Hemoglobin 10.8 L Hematocrit 33.4 L Mean Corpuscular Volume 91.8 Mean Corpuscular Hemoglobin 29.7 Mean Corpuscular Hemoglobin Concent 32.3 Red Cell Distribution Width 13.2 Platelet Count 270 Mean Platelet Volume 9.7 Neutrophils % 84.0 H Band Neutrophils % 2.0 Lymphocytes % 10.0 L Monocytes % 4.0 Eosinophils % Neutrophils # 14.5 H Lymphocytes # 1.7 Monocytes # 0.7 Eosinophils # Platelet Estimate PLT APPEAR ADEQUATE Sodium Level 139 Potassium Level 3.2 L Chloride Level 100 Carbon Dioxide Level 29 Anion Gap 13 Blood Urea Nitrogen 6 L Creatinine 0.44 Glucose Level 93 Calcium Level 8.0 L Total Bilirubin 0.5 Direct Bilirubin 0.00 Indirect Bilirubin 0.5 Aspartate Amino Transf (AST/SGOT) 26 Alanine Aminotransferase (ALT/SGPT) 66 Alkaline Phosphatase 78 Total Protein 5.8 L Albumin 3.1 L Globulin 2.70 Albumin/Globulin Ratio 1.14 Phosphorus Level 2.7 Magnesium Level 2.0 Amylase Level 43 # Lipase 50 Medications Medications Current Medications Sodium Chloride (NS) 1,000 ml @ 100 mls/hr Q10H IV Last administered on 23:41; Admin Dose 100 MLS/HR; Start 04/03/17 at 00:30 Hydromorphone HCl (Dilaudid) 0.5 mg Q4H PRN IV PAIN Last administered on 06:14; Admin Dose 0.5 MG; Start 04/03/17 at 00:30 Ondansetron HCl (Zofran Inj) 4 mg Q6H PRN IV NAUSEA AND/OR VOMITING; Start at 03:30 Pantoprazole (Protonix Iv) 40 mg DAILY@06 IV Last administered on 04/06/17 05: 45; Admin Dose 40 MG; Start 04/03/17 at 06:00 Hydralazine HCl 10 mg 10 mg Q6H PRN IV SBP>160; Start 04/03/17 at 12:30 Piperacillin Sod/ Tazobactam Sod (Zosyn 3.375gm/ 100 ml (Pmx)) 100 ml @ 200 mls /hr Q8 IVPB Last administered on 04/06/17 05:44; Admin Dose 200 MLS/HR; Start 04/04/17 at 15:00 RANDA LOPEZ NP Apr 06, 2017 10:18
--- NOTE | 2017-04-06 11:27 | PN ---
Date/Time of Note Date/Time of Note DATE: 04/06/17 TIME: 11:24 Assessment/Plan Lines/Catheters IV Catheter Type (from Nrs): Peripheral IV Mike in Place (from Nrs): No Assessment/Plan Assessment/Plan 51-year-old female with gallstone pancreatitis * MRCP negative for choledocholithiasis * Amylase, lipase and LFTs normalized. * Leukocytosis. Likely systemic inflammatory response syndrome from pancreatitis * Pain control * Will plan for cholecystectomy in AM if remains stable as medical necessity and definitive treatment to prevent further recurrent gallstone pancreatitis episodes * NPO p MN * Medical clearance Discussed above in detail with patient and primary care team Subjective 24 Hr Interval Summary Feels a little better. Afebrile. Exam/Review of Systems Vital Signs Vitals Vital Signs Date Time Temp Pulse Resp B/P Pulse Ox O2 Delivery O2 Flow Rate FiO2 04/06/17 07:54 98.7 88 17 124/79 95 04/02/17 23:00 Room Air Intake and Output 04/05/17 04/05/17 04/06/17 15:00 23:00 07:00 Intake Total 100 ml 1445 ml 1850 ml Output Total 700 ml 1350 ml Balance 100 ml 745 ml 500 ml Exam Free Text/Dictation GENERAL: Awake, alert, oriented x 3. No acute distress. SKIN: No jaundice. HEENT: PERRLA, EOMI, No Scleral Icterus CARDIOVASCULAR: S1S2, regular rate and rhythm. No murmurs appreciated. RESPIRATORY: Clear to auscultation bilaterally. ABDOMEN: Obese, soft, bowel sounds present, nondistended, there is mild epigastric tenderness to palpation which has improved. There is no rebound or guarding. EXTREMITIES: Free range of motion x 4. No cyanosis, edema, or clubbing. Results Result Diagram: 04/06/17 0527 04/06/17 0527 BILLIE SMALLWOOD MD Apr 06, 2017 11:27
--- NOTE | 2017-04-06 12:08 | PN ---
Date/Time of Note Date/Time of Note DATE: 04/06/17 TIME: 12:05 Assessment/Plan VTE Prophylaxis VTE Prophylaxis Intervention: SCD's Lines/Catheters [facility]): Peripheral IV Urinary Cath still in place: No Assessment/Plan Assessment/Plan Assessment * Abdominal pain Gallstone pancreatitis MRCP Cholelithiasis without evidence of acute cholecystitis. No evidence of choledocholithiasis or biliary tract obstruction. Extensive pancreatic and peripancreatic edema compatible with acute pancreatitis. No evidence of organized fluid collection. Plan * continue present management * trend lipase and liver enzymes * clear liquids * adequate pain control * Surgery planned for tomorrow Subjective 24 Hr Interval Summary Free Text/Dictation Course reviewed with nursing staff Patient reports significant improvement with less abdominal pain tolerating Liquid diet, no nausea or vomiting Scheduled for surgery tomorrow Exam/Review of Systems Vital Signs Vitals Vital Signs Date Time Temp Pulse Resp B/P Pulse Ox O2 Delivery O2 Flow Rate FiO2 04/06/17 07:54 98.7 88 17 124/79 95 04/02/17 23:00 Room Air Intake and Output 04/05/17 04/05/17 04/06/17 15:00 23:00 07:00 Intake Total 100 ml 1445 ml 1850 ml Output Total 700 ml 1350 ml Balance 100 ml 745 ml 500 ml Exam Constitutional: alert, obese, oriented, well developed Head: atraumatic, normocephalic Neck: non-tender, supple Respiratory: clear to auscultation, normal air movement Cardiovascular: nl pulses, regular rate and rhythm Gastrointestinal: bowel sounds, distended, tender (mild upper abdominal tenderness), No ascites, No rebound or guarding Musculoskeletal: nl extremities to inspection Results Result Diagram: 04/06/17 0527 04/06/17 0527 Results 24 hrs Laboratory Tests Test 04/06/17 05:27 04/06/17 05:32 White Blood Count 17.3 H Red Blood Count 3.64 L Hemoglobin 10.8 L Hematocrit 33.4 L Mean Corpuscular Volume 91.8 Mean Corpuscular Hemoglobin 29.7 Mean Corpuscular Hemoglobin Concent 32.3 Red Cell Distribution Width 13.2 Platelet Count 270 Mean Platelet Volume 9.7 Neutrophils % 84.0 H Band Neutrophils % 2.0 Lymphocytes % 10.0 L Monocytes % 4.0 Eosinophils % Neutrophils # 14.5 H Lymphocytes # 1.7 Monocytes # 0.7 Eosinophils # Platelet Estimate PLT APPEAR ADEQUATE Sodium Level 139 Potassium Level 3.2 L Chloride Level 100 Carbon Dioxide Level 29 Anion Gap 13 Blood Urea Nitrogen 6 L Creatinine 0.44 Glucose Level 93 Calcium Level 8.0 L Total Bilirubin 0.5 Direct Bilirubin 0.00 Indirect Bilirubin 0.5 Aspartate Amino Transf (AST/SGOT) 26 Alanine Aminotransferase (ALT/SGPT) 66 Alkaline Phosphatase 78 Total Protein 5.8 L Albumin 3.1 L Globulin 2.70 Albumin/Globulin Ratio 1.14 Phosphorus Level 2.7 Magnesium Level 2.0 Amylase Level 43 # Lipase 50 Medications Medications Current Medications Sodium Chloride (NS) 1,000 ml @ 100 mls/hr Q10H IV Last administered on 10:27; Admin Dose 100 MLS/HR; Start 04/03/17 at 00:30 Hydromorphone HCl (Dilaudid) 0.5 mg Q4H PRN IV PAIN Last administered on 10:26; Admin Dose 0.5 MG; Start 04/03/17 at 00:30 Ondansetron HCl (Zofran Inj) 4 mg Q6H PRN IV NAUSEA AND/OR VOMITING; Start at 03:30 Pantoprazole (Protonix Iv) 40 mg DAILY@06 IV Last administered on 04/06/17 05: 45; Admin Dose 40 MG; Start 04/03/17 at 06:00 Hydralazine HCl 10 mg 10 mg Q6H PRN IV SBP>160; Start 04/03/17 at 12:30 Piperacillin Sod/ Tazobactam Sod (Zosyn 3.375gm/ 100 ml (Pmx)) 100 ml @ 200 mls /hr Q8 IVPB Last administered on 04/06/17 05:44; Admin Dose 200 MLS/HR; Start 04/04/17 at 15:00 MARIO SANDERS MD Apr 06, 2017 12:08
--- NOTE | 2017-04-06 14:07 | RADRPT ---
PROCEDURE: XR Chest. CLINICAL INDICATION: Preoperative. TECHNIQUE: Single frontal view. COMPARISON: None. FINDINGS: There is mild atelectasis at the lung bases. The lungs are otherwise clear. The heart size is normal. There is no pleural effusion. There is no pneumothorax. IMPRESSION: 1. Mild atelectasis at the lung bases. 2. Otherwise normal chest x-ray. RPTAT: QQ .Theodore Villeda MD, MD Date Time Electronically viewed and signed by .Theodore Villeda MD, on 04/06/2017 14:06 .R/
[2017-04-06 14:20] VITALS: BP 120/65; RESP 18
[2017-04-06 20:25] VITALS: BP 112/56; RESP 22
[2017-04-07] MEDS: HYDROmorphONE 1 MG/ML SYG IV PRN ×5 (02:49→22:31)
[2017-04-07 02:54] VITALS: BP 127/69; RESP 18
[2017-04-07 05:13] LABS: ADD SCAN DIFF NO
[2017-04-07 05:19] LABS: BASOPHILS % 0.1 % (0.0-2.0); EOSINOPHILS # 0.1 10^3/ul (0.0-0.5); EOSINOPHILS % 0.8 % (0.0-7.0); HEMATOCRIT 30.8 % (37.0-47.0); HEMOGLOBIN 10.1 g/dl (12.0-16.0); LYMPHOCYTES # 1.7 10^3/ul (0.8-2.9); LYMPHOCYTES % 9.4 % (15.0-51.0); MEAN CORPUSCULAR HEMOGLOBIN 29.7 pg (29.0-33.0); MEAN CORPUSCULAR HGB CONC 32.8 g/dl (32.0-37.0); MEAN CORPUSCULAR VOLUME 90.6 fl (82.0-101.0); MEAN PLATELET VOLUME 9.2 fl (7.4-10.4); MONOCYTE # 1.2 10^3/ul (0.3-0.9); MONOCYTES % 6.6 % (0.0-11.0); NEUTROPHILS % 82.5 % (39.0-77.0); PLATELET COUNT 296 10^3/UL (140-415); WHITE BLOOD COUNT 18.1 10^3/ul (4.8-10.8)
[2017-04-07 05:35] LABS: MAGNESIUM 1.9 mg/dl (1.7-2.5); PHOSPHORUS 3.1 mg/dl (2.5-4.9)
[2017-04-07 05:47] LABS: ALBUMIN/GLOBULIN RATIO 1.11; BILIRUBIN,INDIRECT 0.3 mg/dl (0-1.1); BILIRUBIN,TOTAL 0.3 mg/dl (0.2-1.3); CALCIUM 7.9 mg/dl (8.4-10.2); CREATININE 0.44 mg/dl (0.44-1.00); POTASSIUM 3.3 mmol/L (3.5-5.1); TOTAL PROTEIN 5.7 g/dl (6.1-8.1)
[2017-04-07 05:55] LABS: AMYLASE < 30 U/L (11-123)
[2017-04-07] MEDS: PANTOPRAZOLE 40 MG INJ IV SCH (05:55)
[2017-04-07] MEDS: PIPER-TAZO 3.375 GM IV (PMX) 100 ML IVPB SCH ×3 (05:55→21:59)
[2017-04-07 08:00] VITALS: BP 120/68; RESP 18
[2017-04-07] MEDS: SOD CHLORIDE 0.9% 1,000 ML IV SCH (10:06)
[2017-04-07 14:00] VITALS: BP 135/75; RESP 18
[2017-04-07] MEDS ORDERED: POTASSIUM CHLORIDE 50 ML IVPB ONE (14:00)
--- NOTE | 2017-04-07 14:01 | PN ---
Date/Time of Note Date/Time of Note DATE: 04/07/17 TIME: 13:53 Assessment/Plan VTE Prophylaxis VTE Prophylaxis Intervention: ambulation Lines/Catheters IV C[facility] Type [facility] [place] Lock Urinary Cath still in place: No Assessment/Plan Chief Complaint/Hosp Course Assessment and plan 1. Gallstone pancreatitis. Patient status post MRCP. No noted choledocholithiasis. Lipase levels normalized. Tentative plan for cholecystectomy 2. Cholelithiasis. Tentative plan for cholecystectomy. Will follow. 3. Hypokalemia. Will replete and check level in a.m. 4. Leukocytosis likely secondary to #1. On antibiotics. We will follow-up Disposition plan: Tentative plan for cholecystectomy. Discussed plan of care with Dr. Markham Problems: Subjective 24 Hr Interval Summary Free Text/Dictation no s/s of distress. sitting in chair Exam/Review of Systems Vital Signs Vitals Vital Signs Date Time Temp Pulse Resp B/P Pulse Ox O2 Delivery O2 Flow Rate FiO2 04/07/17 08:00 98.7 90 18 120/68 94 Intake and Output 04/06/17 04/06/17 04/07/17 15:00 23:00 07:00 Intake Total 400 ml 2180 ml 1550 ml Output Total 3 ml 3 ml Balance 400 ml 2177 ml 1547 ml Exam Constitutional: alert, oriented Head: normocephalic Neck: supple, No jvd Respiratory: clear to auscultation Cardiovascular: regular rate and rhythm Gastrointestinal: soft, tender Musculoskeletal: nl extremities to inspection, nl gait and stance Neurological: LANG[employer]AGES [employer] II-XII intact, nl mental status, nl speech Skin: nl turgor Results Result Diagram: 04/07/17 0447 04/07/17 0447 Results 24 hrs Laboratory Tests Test 04/07/17 04:47 White Blood Count 18.1 H Red Blood Count 3.40 L Hemoglobin 10.1 L Hematocrit 30.8 L Mean Corpuscular Volume 90.6 Mean Corpuscular Hemoglobin 29.7 Mean Corpuscular Hemoglobin Concent 32.8 Red Cell Distribution Width 13.0 Platelet Count 296 Mean Platelet Volume 9.2 Neutrophils % 82.5 H Lymphocytes % 9.4 L Monocytes % 6.6 Eosinophils % 0.8 Basophils % 0.1 Nucleated Red Blood Cells % 0.0 Neutrophils # 15.0 H Lymphocytes # 1.7 Monocytes # 1.2 H Eosinophils # 0.1 Basophils # 0.0 Nucleated Red Blood Cells # 0.0 Sodium Level 139 Potassium Level 3.3 L Chloride Level 99 Carbon Dioxide Level 28 Anion Gap 15 Blood Urea Nitrogen 4 L Creatinine 0.44 Glucose Level 97 Calcium Level 7.9 L Phosphorus Level 3.1 Magnesium Level 1.9 Total Bilirubin 0.3 Direct Bilirubin 0.00 Indirect Bilirubin 0.3 Aspartate Amino Transf (AST/SGOT) 24 Alanine Aminotransferase (ALT/SGPT) 55 Alkaline Phosphatase 83 Total Protein 5.7 L Albumin 3.0 L Globulin 2.70 Albumin/Globulin Ratio 1.11 Amylase Level < 30 Lipase 30 Medications Medications Current Medications Sodium Chloride (NS) 1,000 ml @ 100 mls/hr Q10H IV Last administered on 10:06; Admin Dose 100 MLS/HR; Start 04/03/17 at 00:30 Hydromorphone HCl (Dilaudid) 0.5 mg Q4H PRN IV PAIN Last administered on 11:16; Admin Dose 0.5 MG; Start 04/03/17 at 00:30 Ondansetron HCl (Zofran Inj) 4 mg Q6H PRN IV NAUSEA AND/OR VOMITING; Start at 03:30 Pantoprazole (Protonix Iv) 40 mg DAILY@06 IV Last administered on 04/07/17 05: 55; Admin Dose 40 MG; Start 04/03/17 at 06:00 Hydralazine HCl 10 mg 10 mg Q6H PRN IV SBP>160; Start 04/03/17 at 12:30 Piperacillin Sod/ Tazobactam Sod 100 ml @ 200 mls/hr Q8 IVPB Last administered on 04/07/17 05:55; Admin Dose 200 MLS/HR; Start 04/04/17 at 15:00 Potassium Chloride (KCl 10 MEQ/50 ML SW) 50 ml @ 50 mls/hr Q1H IVPB ; Start at 14:00; Stop 04/07/17 at 15:59 DALTON BEATTY Apr 07, 2017 14:01
[2017-04-07] MEDS ORDERED: HYDROmorphONE 1 MG/ML SYG IV STA (14:27)
[2017-04-07] MEDS: POTASSIUM CHLORIDE 50 ML IVPB SCH ×2 (15:05→16:01)
--- NOTE | 2017-04-07 19:30 | QN ---
Documentation Comment OR schedule backed up. Would not be able to perform the procedure until middle of the night. Therefore, I have scheduled patient for tomorrow around 12:30 PM. Discussed with patient. BILLIE SMALLWOOD MD Apr 07, 2017 19:30
[2017-04-07 20:00] VITALS: BP 139/72; RESP 18
[2017-04-08] VITALS (17 sets, daily range): BP systolic 118–138; BP diastolic 55–89; PULSE 82–99; RESP 14–22
[2017-04-08] MEDS: HYDROmorphONE 1 MG/ML SYG IV PRN ×5 (02:25→21:16)
[2017-04-08] MEDS: SOD CHLORIDE 0.9% 1,000 ML IV SCH ×4 (02:25→20:30)
[2017-04-08] MEDS: PIPER-TAZO 3.375 GM IV (PMX) 100 ML IVPB SCH ×3 (06:20→21:10)
[2017-04-08] MEDS: PANTOPRAZOLE 40 MG INJ IV SCH (06:20)
[2017-04-08 06:29] LABS: ADD SCAN DIFF NO
[2017-04-08 06:34] LABS: BASOPHILS % 0.2 % (0.0-2.0); EOSINOPHILS # 0.1 10^3/ul (0.0-0.5); EOSINOPHILS % 0.6 % (0.0-7.0); HEMATOCRIT 31.2 % (37.0-47.0); HEMOGLOBIN 10.1 g/dl (12.0-16.0); LYMPHOCYTES # 1.7 10^3/ul (0.8-2.9); MEAN CORPUSCULAR HGB CONC 32.4 g/dl (32.0-37.0); MEAN CORPUSCULAR VOLUME 89.7 fl (82.0-101.0); MEAN PLATELET VOLUME 9.3 fl (7.4-10.4); MONOCYTE # 1.3 10^3/ul (0.3-0.9); MONOCYTES % 7.4 % (0.0-11.0); NEUTROPHIL # 13.8 10^3/ul (1.6-7.5); NEUTROPHILS % 80.8 % (39.0-77.0); PLATELET COUNT 325 10^3/UL (140-415); RED BLOOD COUNT 3.48 10^6/ul (4.20-5.40); WHITE BLOOD COUNT 17.1 10^3/ul (4.8-10.8)
[2017-04-08 07:00] LABS: CALCIUM 7.9 mg/dl (8.4-10.2); CREATININE 0.47 mg/dl (0.44-1.00); POTASSIUM 3.3 mmol/L (3.5-5.1)
[2017-04-08] MEDS ORDERED: BUPIVACAINE 0.25% (MPF) 30 ML INJ ONE (11:39)
[2017-04-08] MEDS ORDERED: ROCURONIUM 50 MG INJ ONE (11:59)
[2017-04-08] MEDS ORDERED: FENTAnyl 50 MCG/ML VIAL ONE (11:59)
[2017-04-08] MEDS ORDERED: ONDANSETRON 4 MG INJ ONE (11:59)
[2017-04-08] MEDS ORDERED: SUCCINYLCHOLINE CHLORIDE 100 MG/5 ML SYG IV ONE (11:59)
[2017-04-08] MEDS ORDERED: METOCLOPRAMIDE 10 MG INJ ONE (11:59)
[2017-04-08] MEDS ORDERED: PROPOFOL 20 ML ONE (11:59)
[2017-04-08] MEDS ORDERED: POTASSIUM CHLORIDE 20 MEQ in SOD CHLORIDE 0.9% 100 ML IVPB ONE (12:00)
--- NOTE | 2017-04-08 12:31 | PN ---
Date/Time of Note Date/Time of Note error note Assessment/Plan VTE Prophylaxis VTE Prophylaxis Intervention: other Lines/Catheters IV C[facility]ter Type (from [facility]): Peripheral IV Urinary Cath still in place: No Exam/Review of Systems Vital Signs Vitals Vital Signs Date Time Temp Pulse Resp B/P Pulse Ox O2 Delivery O2 Flow Rate FiO2 04/08/17 08:00 98.0 85 18 126/70 96 Intake and Output 04/07/17 04/07/17 04/08/17 15:00 23:00 07:00 Intake Total 400 ml 1600 ml 960 ml Output Total 3 ml Balance 400 ml 1597 ml 960 ml Results Result Diagram: 04/08/17 0547 04/08/17 0547 Results 24 hrs Laboratory Tests Test 04/08/17 05:47 White Blood Count 17.1 H Red Blood Count 3.48 L Hemoglobin 10.1 L Hematocrit 31.2 L Mean Corpuscular Volume 89.7 Mean Corpuscular Hemoglobin 29.0 Mean Corpuscular Hemoglobin Concent 32.4 Red Cell Distribution Width 13.0 Platelet Count 325 Mean Platelet Volume 9.3 Neutrophils % 80.8 H Lymphocytes % 10.0 L Monocytes % 7.4 Eosinophils % 0.6 Basophils % 0.2 Nucleated Red Blood Cells % 0.0 Neutrophils # 13.8 H Lymphocytes # 1.7 Monocytes # 1.3 H Eosinophils # 0.1 Basophils # 0.0 Nucleated Red Blood Cells # 0.0 Sodium Level 139 Potassium Level 3.3 L Chloride Level 99 Carbon Dioxide Level 28 Anion Gap 15 Blood Urea Nitrogen 4 L Creatinine 0.47 Glucose Level 103 Calcium Level 7.9 L Medications Medications Current Medications Sodium Chloride (NS) 1,000 ml @ 100 mls/hr Q10H IV Last administered on 02:25; Admin Dose 100 MLS/HR; Start 04/03/17 at 00:30 Hydromorphone HCl (Dilaudid) 0.5 mg Q4H PRN IV PAIN Last administered on 10:53; Admin Dose 0.5 MG; Start 04/03/17 at 00:30 Ondansetron HCl (Zofran Inj) 4 mg Q6H PRN IV NAUSEA AND/OR VOMITING; Start at 03:30 Pantoprazole (Protonix Iv) 40 mg DAILY@06 IV Last administered on 04/08/17 06: 20; Admin Dose 40 MG; Start 04/03/17 at 06:00 Hydralazine HCl 10 mg 10 mg Q6H PRN IV SBP>160; Start 04/03/17 at 12:30 Piperacillin Sod/ Tazobactam Sod 100 ml @ 200 mls/hr Q8 IVPB Last administered on 04/08/17 06:20; Admin Dose 200 MLS/HR; Start 04/04/17 at 15:00 Potassium Chloride/Sodium Chloride (KCl/NS) 110 ml @ 55 mls/hr ONCE ONCE IVPB Last administered on 04/08/17 11:17; Admin Dose 55 MLS/HR; Start 04/08/17 at 12:00; Stop 04/08/17 at 13:59 DALTON BEATTY Apr 08, 2017 12:31 DALTON BEATTY Apr 08, 2017 12:31
--- NOTE | 2017-04-08 12:34 | HPN ---
Date/Time of Note Date/Time of Note DATE: 04/08/17 TIME: 12:34 Interval H&P Admission Note Pt. seen H&P reviewed: No system changes BILLIE SMALLWOOD MD Apr 08, 2017 12:34
[2017-04-08] MEDS ORDERED: KETOROLAC 30 MG INJ ONE (13:00)
[2017-04-08] MEDS ORDERED: MEPERIDINE 25 MG INJ IV PRN (13:30)
[2017-04-08] MEDS ORDERED: ONDANSETRON 4 MG INJ IV PRN ×2 (13:30→14:30)
[2017-04-08] MEDS ORDERED: FENTAnyl 50 MCG/ML VIAL IV PRN ×2 (13:30)
[2017-04-08] MEDS ORDERED: HYDROmorphONE (0.2 MG/ML) 10ML SYG IV PRN ×3 (13:30)
--- NOTE | 2017-04-08 13:41 | PN ---
Date/Time of Note Date/Time of Note DATE: 04/08/17 TIME: 13:35 Assessment/Plan VTE Prophylaxis VTE Prophylaxis Intervention: SCD's Lines/Catheters IV C[facility]ter Type (from [facility]): Peripheral IV Urinary Cath still in place: No Assessment/Plan Chief Complaint/Hosp Course Assessment and plan 1. Gallstone pancreatitis. Patient status post MRCP. No noted choledocholithiasis. Lipase levels normalized. Patient for laparoscopic cholecystectomy today. We will follow-up 2. Cholelithiasis. Tentative plan for cholecystectomy. Will follow. 3. Hypokalemia. Will replete and check level in a.m. 4. Leukocytosis likely secondary to #1. On antibiotics. We will follow-up Disposition plan: Patient for laparoscopic cholecystectomy today. We will follow-up postop. We will follow-up on a.m. labs Discussed plan of care with Dr. Markham Problems: Subjective 24 Hr Interval Summary Free Text/Dictation patient for cholecystectomy Exam/Review of Systems Vital Signs Vitals Vital Signs Date Time Temp Pulse Resp B/P Pulse Ox O2 Delivery O2 Flow Rate FiO2 04/08/17 08:00 98.0 85 18 126/70 96 Intake and Output 04/07/17 04/07/17 04/08/17 14:59 22:59 06:59 Intake Total 300 ml 1650 ml 1010 ml Output Total 3 ml Balance 300 ml 1647 ml 1010 ml Exam patient for procedure Results Result Diagram: 04/08/17 0547 04/08/17 0547 Results 24 hrs Laboratory Tests Test 04/08/17 05:47 White Blood Count 17.1 H Red Blood Count 3.48 L Hemoglobin 10.1 L Hematocrit 31.2 L Mean Corpuscular Volume 89.7 Mean Corpuscular Hemoglobin 29.0 Mean Corpuscular Hemoglobin Concent 32.4 Red Cell Distribution Width 13.0 Platelet Count 325 Mean Platelet Volume 9.3 Neutrophils % 80.8 H Lymphocytes % 10.0 L Monocytes % 7.4 Eosinophils % 0.6 Basophils % 0.2 Nucleated Red Blood Cells % 0.0 Neutrophils # 13.8 H Lymphocytes # 1.7 Monocytes # 1.3 H Eosinophils # 0.1 Basophils # 0.0 Nucleated Red Blood Cells # 0.0 Sodium Level 139 Potassium Level 3.3 L Chloride Level 99 Carbon Dioxide Level 28 Anion Gap 15 Blood Urea Nitrogen 4 L Creatinine 0.47 Glucose Level 103 Calcium Level 7.9 L Medications Medications Current Medications Sodium Chloride (NS) 1,000 ml @ 100 mls/hr Q10H IV Last administered on 02:25; Admin Dose 100 MLS/HR; Start 04/03/17 at 00:30 Hydromorphone HCl (Dilaudid) 0.5 mg Q4H PRN IV PAIN Last administered on 10:53; Admin Dose 0.5 MG; Start 04/03/17 at 00:30 Ondansetron HCl (Zofran Inj) 4 mg Q6H PRN IV NAUSEA AND/OR VOMITING; Start at 03:30 Pantoprazole (Protonix Iv) 40 mg DAILY@06 IV Last administered on 04/08/17 06: 20; Admin Dose 40 MG; Start 04/03/17 at 06:00 Hydralazine HCl 10 mg 10 mg Q6H PRN IV SBP>160; Start 04/03/17 at 12:30 Piperacillin Sod/ Tazobactam Sod 100 ml @ 200 mls/hr Q8 IVPB Last administered on 04/08/17 06:20; Admin Dose 200 MLS/HR; Start 04/04/17 at 15:00 Potassium Chloride/Sodium Chloride (KCl/NS) 110 ml @ 55 mls/hr ONCE ONCE IVPB Last administered on 04/08/17 11:17; Admin Dose 55 MLS/HR; Start 04/08/17 at 12:00; Stop 04/08/17 at 13:59 DALTON BEATTY Apr 08, 2017 13:41
--- NOTE | 2017-04-08 13:52 | RADRPT ---
Vent Rate: 90 bpm RR Interval: 0 msec UT Interval: 118 msec QRS Duration: 96 msec QT Interval: 364 msec QTC Interval: 445 msec P-R-T [place]: 32 - 89 - 19 degrees Normal sinus rhythm Normal ECG Electronically Signed By: Phan Watson [id number]
--- NOTE | 2017-04-08 14:12 | OPR ---
Date/Time of Note Date/Time of Note DATE: 04/08/17 TIME: 14:06 Operative Report Procedure Date: Apr 08, 2017 Preoperative Diagnosis 1. Gallstone pancreatitis 2. Chronic cholecystitis/cholelithiasis Postoperative Diagnosis 1. Gallstone pancreatitis 2. Chronic cholecystitis/cholelithiasis Operation Performed Laparoscopic cholecystectomy Surgeon: BILLIE SMALLWOOD MD Anesthesia: general Anesthesiologist: JHONY MADRIGAL MD Estimated Blood Loss: minimal Specimens Gallbladder Complications: None Pt Condition Post Procedure: stable Disposition: PACU Indications The patient is a obese 51-year-old female who presented to the emergency room with complaints of epigastric and right upper quadrant abdominal pain. The patient had a history of recurrent gallstone pancreatitis. The patient had clinical signs and symptoms of gallstone pancreatitis with elevated lipase levels. An ultrasound was performed which showed the presence of gallstones. An MRCP was negative for choledocholithiasis. She was admitted, started on broad-spectrum intravenous antibiotics, IV fluids and pain control. The patient was scheduled for laparoscopic cholecystectomy; possible open as medical necessity and definitive treatment to prevent further sequelae of gallstone disease which include but are not limited to: Gangrenous cholecystitis, choledocholithiasis, gallstone pancreatitis, ascending cholangitis, etc. All risks and benefits of the procedure including but not limited to: Wound infection, excessive bleeding, common bile duct injury, postoperative biliary leak, retained common bile duct stone, injury to intra-abdominal organs, conversion to open procedure, possible need for subsequent surgeries, etc. were all explained to the patient in full detail. She fully understood and wished to proceed with the procedure. Informed consent was therefore obtained. Operative\Procedure Findings Saponification of the abdominal fat consistent with pancreatitis. Changes of chronic cholecystitis. Cholelithiasis. Procedure Description The patient was brought to the operating room and placed supine on the operating table. Bilateral sequential compression devices were placed on both lower extremities. The patient had been maintained on broad-spectrum intravenous antibiotics while an inpatient on the floor. After the induction of smooth general endotracheal anesthesia the patient's abdomen was prepped and draped in the standard surgical fashion. After performance of the surgical timeout a 5 mm incision was made in the superior umbilicus and a Veress needle was used to access the intra-abdominal cavity atraumatically. Pneumoperitoneum was then obtained and the Veress needle was exchanged for a 5 mm trocar through which a 5 mm laparoscope was placed. Three further working ports were then placed a 12 mm port in the sub-xiphoid region and two 5 mm ports in the right upper quadrant. All port sites were anesthetized with 0.25% Marcaine with epinephrine prior to incision. Diagnostic laparoscopy showed saponification of the omental and abdominal wall fat consistent with pancreatitis. Using atraumatic graspers the gallbladder was grasped and retracted superiorly and laterally exposing the area of Foy's pouch. The 0 scope was exchanged for 30 scope to aid in better visualization. Dissection was begun in the area of the cystic duct structures using a combination of blunt dissection and hook electrocautery. The cystic duct was identified as it entered straight into the neck of the gallbladder. It was dissected free of surrounding tissues and clipped proximally and distally x 3 and transected using EndoShears. Dissection was then continued posteriorly. The cystic artery was identified and dissected free of surrounding tissues. It too was clipped proximally and distally x 3 and transected using EndoShears. The gallbladder was then dissected off the liver bed using electrocautery. Once completely free the gallbladder was placed in an Endo Catch bag and withdrawn through the subxiphoid port site and passed off the field as specimen. Hemostasis was then inspected for and noted to be total. The abdomen was then irrigated with several liters of warm normal saline and the irrigant returned crystal clear. The fascia of the subxiphoid port site was then reapproximated using an endoclose device and 0 Vicryl suture. Pneumoperitoneum was then released and all remaining trochars were withdrawn under direct vision. The subcutaneous tissues were irrigated with more warm normal saline and further local anesthesia was applied around the skin of the incision sites. The skin was then reapproximated using 4-0 Monocryl sutures in subcuticular fashion. The incisions were cleaned and Dermabond was applied to the incisions and the patient was awoken from anesthesia and transported to the recovery room in stable condition. All counts were correct at the end of the case x 2. BILLIE SMALLWOOD MD Apr 08, 2017 14:12
[2017-04-08] MEDS ORDERED: HYDROCODONE/APAP (5/325) TAB PO PRN (14:30)
[2017-04-08] MEDS ORDERED: HYDROCODONE/APAP (10/325) TAB PO PRN (14:30)
[2017-04-08] MEDS ORDERED: ACETAMINOPHEN 325 MG TAB PO PRN (14:30)
[2017-04-08] MEDS ORDERED: METOCLOPRAMIDE 10 MG INJ IV PRN (14:30)
--- NOTE | 2017-04-08 15:16 | PN ---
Date/Time of Note Date/Time of Note DATE: 04/08/17 TIME: 15:13 Assessment/Plan VTE Prophylaxis VTE Prophylaxis Intervention: SCD's Lines/Catheters [facility] (from [facility]): Peripheral IV Urinary Cath still in place: No Assessment/Plan Assessment/Plan Assessment * Abdominal pain Gallstone pancreatitis MRCP Cholelithiasis without evidence of acute cholecystitis. No evidence of choledocholithiasis or biliary tract obstruction. Extensive pancreatic and peripancreatic edema compatible with acute pancreatitis. No evidence of organized fluid collection. Plan * patient still in operating room * continue present management * adequate pain control * case discussed with DR Guerra * Further orders will depend on clinical course Subjective 24 Hr Interval Summary Free Text/Dictation * Course reviewed * Immediate post op surgery * patient still on operating room Exam/Review of Systems Vital Signs Vitals Vital Signs Date Time Temp Pulse Resp B/P Pulse Ox O2 Delivery O2 Flow Rate FiO2 04/08/17 14:43 84 20 125/74 95 Nasal Cannula 2.0 04/08/17 14:08 98.0 Intake and Output 04/07/17 04/07/17 04/08/17 15:00 23:00 07:00 Intake Total 400 ml 1600 ml 960 ml Output Total 3 ml Balance 400 ml 1597 ml 960 ml Exam Constitutional: frail Gastrointestinal: distended, tender, No rebound or guarding Results Result Diagram: 04/08/17 0547 04/08/17 0547 Results 24 hrs Laboratory Tests Test 04/08/17 05:47 White Blood Count 17.1 H Red Blood Count 3.48 L Hemoglobin 10.1 L Hematocrit 31.2 L Mean Corpuscular Volume 89.7 Mean Corpuscular Hemoglobin 29.0 Mean Corpuscular Hemoglobin Concent 32.4 Red Cell Distribution Width 13.0 Platelet Count 325 Mean Platelet Volume 9.3 Neutrophils % 80.8 H Lymphocytes % 10.0 L Monocytes % 7.4 Eosinophils % 0.6 Basophils % 0.2 Nucleated Red Blood Cells % 0.0 Neutrophils # 13.8 H Lymphocytes # 1.7 Monocytes # 1.3 H Eosinophils # 0.1 Basophils # 0.0 Nucleated Red Blood Cells # 0.0 Sodium Level 139 Potassium Level 3.3 L Chloride Level 99 Carbon Dioxide Level 28 Anion Gap 15 Blood Urea Nitrogen 4 L Creatinine 0.47 Glucose Level 103 Calcium Level 7.9 L Medications Medications Current Medications Sodium Chloride (NS) 1,000 ml @ 100 mls/hr Q10H IV Last administered on 02:25; Admin Dose 100 MLS/HR; Start 04/03/17 at 00:30 Pantoprazole (Protonix Iv) 40 mg DAILY@06 IV Last administered on 04/08/17 06: 20; Admin Dose 40 MG; Start 04/03/17 at 06:00 Hydralazine HCl 10 mg 10 mg Q6H PRN IV SBP>160; Start 04/03/17 at 12:30 Piperacillin Sod/ Tazobactam Sod (Zosyn 3.375gm/ 100 ml (Pmx)) 100 ml @ 200 mls /hr Q8 IVPB Last administered on 04/08/17 14:17; Admin Dose 200 MLS/HR; Start 04/04/17 at 15:00 Metoclopramide HCl (Reglan) 10 mg Q6H PRN IV NAUSEA AND/OR VOMITING; Start at 14:30 Ondansetron HCl (Zofran Inj) 4 mg Q6H PRN IV NAUSEA AND/OR VOMITING; Start at 14:30 Hydromorphone HCl (Dilaudid) 0.5 mg Q4H PRN IV BREAKTHROUGH PAIN; Start at 14:30 Acetaminophen (Tylenol Tab) 650 mg Q6H PRN PO PAIN AND OR ELEVATED TEMP; Start 04/08/17 at 14:30 Acetaminophen/ Hydrocodone Bitart ([place] (5/325)) 1 tab Q6H PRN PO PAIN LEVEL 6 -10; Start 04/08/17 at 14:30 Acetaminophen/ Hydrocodone Bitart ([place] (10/325)) 1 tab Q6H PRN PO PAIN LEVEL 6-10; Start 04/08/17 at 14:30 Docusate Sodium (Colace) 100 mg BID PO ; Start 04/08/17 at 21:00 LORY PAULINO NP Apr 08, 2017 15:16 Acetaminophen/ Hydrocodone Bitart ([place] (10/325)) 1 tab Q6H PRN PO PAIN LEVEL 6-10; Start 04/08/17 at 14:30 Docusate Sodium (Colace) 100 mg BID PO ; Start 04/08/17 at 21:00 LORY PAULINO NP Apr 08, 2017 15:16
[2017-04-08] MEDS: DOCUSATE SODIUM 100 MG CAP PO SCH (21:10)
[2017-04-09] MEDS: HYDROmorphONE 1 MG/ML SYG IV PRN ×6 (01:34→22:37)
[2017-04-09 02:35] VITALS: BP 130/65; RESP 16
[2017-04-09] MEDS: SOD CHLORIDE 0.9% 1,000 ML IV SCH ×2 (03:03→14:37)
[2017-04-09] MEDS: PIPER-TAZO 3.375 GM IV (PMX) 100 ML IVPB SCH ×3 (05:30→21:28)
[2017-04-09] MEDS: PANTOPRAZOLE 40 MG INJ IV SCH (05:31)
[2017-04-09 05:53] LABS: ADD SCAN DIFF NO
[2017-04-09 05:55] LABS: BASOPHILS % 0.2 % (0.0-2.0); EOSINOPHILS # 0.1 10^3/ul (0.0-0.5); EOSINOPHILS % 0.7 % (0.0-7.0); HEMATOCRIT 30.3 % (37.0-47.0); LYMPHOCYTES # 1.7 10^3/ul (0.8-2.9); LYMPHOCYTES % 13.3 % (15.0-51.0); MEAN CORPUSCULAR HEMOGLOBIN 29.7 pg (29.0-33.0); MEAN CORPUSCULAR VOLUME 89.9 fl (82.0-101.0); MEAN PLATELET VOLUME 8.9 fl (7.4-10.4); MONOCYTE # 0.9 10^3/ul (0.3-0.9); MONOCYTES % 7.1 % (0.0-11.0); NEUTROPHIL # 9.8 10^3/ul (1.6-7.5); NEUTROPHILS % 77.5 % (39.0-77.0); PLATELET COUNT 343 10^3/UL (140-415); RED BLOOD COUNT 3.37 10^6/ul (4.20-5.40); RED CELL DISTRIBUTION WIDTH 12.9 % (11.5-14.5); WHITE BLOOD COUNT 12.7 10^3/ul (4.8-10.8)
[2017-04-09 07:10] LABS: ALBUMIN 2.6 g/dl (3.3-4.9); ALBUMIN/GLOBULIN RATIO 0.83; BILIRUBIN,INDIRECT 0.2 mg/dl (0-1.1); BILIRUBIN,TOTAL 0.2 mg/dl (0.2-1.3); CALCIUM 7.9 mg/dl (8.4-10.2); CREATININE 0.41 mg/dl (0.44-1.00); POTASSIUM 3.3 mmol/L (3.5-5.1); TOTAL PROTEIN 5.7 g/dl (6.1-8.1)
[2017-04-09 08:46] VITALS: BP 143/65; RESP 18
[2017-04-09] MEDS: DOCUSATE SODIUM 100 MG CAP PO SCH ×2 (09:57→20:24)
--- NOTE | 2017-04-09 12:35 | PN ---
Date/Time of Note Date/Time of Note DATE: 04/09/17 TIME: 12:33 Assessment/Plan Lines/Catheters IV Catheter Type (from Nrs): Peripheral IV Mike in Place (from Nrs): No Assessment/Plan Assessment/Plan 51-year-old female with gallstone pancreatitis status post laparoscopic cholecystectomy postop day #1 * Advance diet as tolerated * Out of bed/incentive spirometry * DVT prophylaxis * Surgically stable for discharge home in a.m. if medically cleared Discussed above in detail with patient and primary care team Subjective 24 Hr Interval Summary Feeling better. Abdominal pain controlled. Tolerating clear liquids. Afebrile. Exam/Review of Systems Vital Signs Vitals Vital Signs Date Time Temp Pulse Resp B/P Pulse Ox O2 Delivery O2 Flow Rate FiO2 04/09/17 08:46 98.0 85 18 143/65 96 04/08/17 15:08 Nasal Cannula 2.0 Intake and Output 04/08/17 04/08/17 04/09/17 15:00 23:00 07:00 Intake Total 600 ml 100 ml 1850 ml Output Total 10 ml 1100 ml 110 ml Balance 590 ml -1000 ml 1740 ml Exam Free Text/Dictation GENERAL: Awake, alert, oriented x 3. No acute distress. SKIN: No jaundice. HEENT: PERRLA, EOMI, No Scleral Icterus CARDIOVASCULAR: S1S2, regular rate and rhythm. No murmurs appreciated. RESPIRATORY: Clear to auscultation bilaterally. ABDOMEN: Obese, soft, bowel sounds present, appropriate incisional tenderness to palpation. INCISIONS: Clean, dry, intact. EXTREMITIES: Free range of motion x 4. No cyanosis, edema, or clubbing. Results Result Diagram: 04/09/17 0509 04/09/17 0511 BILLIE SMALLWOOD MD Apr 09, 2017 12:35
[2017-04-09] MEDS ORDERED: POTASSIUM CHLORIDE 20 MEQ in SOD CHLORIDE 0.9% 100 ML IVPB ONE (13:30)
[2017-04-09 14:20] VITALS: BP 130/64; RESP 18
--- NOTE | 2017-04-09 15:38 | PN ---
Date/Time of Note Date/Time of Note DATE: 04/09/17 TIME: 15:34 Assessment/Plan VTE Prophylaxis VTE Prophylaxis Intervention: ambulation Lines/Catheters [facility] Peripheral IV Urinary Cath still in place: No Assessment/Plan Assessment/Plan Assessment * Abdominal pain Gallstone pancreatitis MRCP Cholelithiasis without evidence of acute cholecystitis. No evidence of choledocholithiasis or biliary tract obstruction. Extensive pancreatic and peripancreatic edema compatible with acute pancreatitis. No evidence of organized fluid collection. * Laparoscopic cholecystectomy Plan * Stable for outpatient management * continue present management * case discussed with Dr Guerra Subjective 24 Hr Interval Summary Free Text/Dictation * course reviewed with RN * Patient seen and examined * S/P laparoscopic cholecystectomy 1st post op day * No untoward events overnight Exam/Review of Systems Vital Signs Vitals Vital Signs Date Time Temp Pulse Resp B/P Pulse Ox O2 Delivery O2 Flow Rate FiO2 04/09/17 14:20 98.3 88 18 130/64 96 04/08/17 15:08 Nasal Cannula 2.0 Intake and Output 04/08/17 04/08/17 04/09/17 15:00 23:00 07:00 Intake Total 600 ml 100 ml 1850 ml Output Total 10 ml 1100 ml 110 ml Balance 590 ml -1000 ml 1740 ml Exam Constitutional: alert Head: atraumatic, normocephalic Eyes: EOMI, nl conjunctiva, nl lids ENMT: nl nasal mucosa & septum Neck: non-tender, supple Respiratory: clear to auscultation, normal air movement Cardiovascular: nl pulses, regular rate and rhythm Gastrointestinal: bowel sounds, non-tender, soft, No rebound or guarding Musculoskeletal: nl extremities to inspection, nl gait and stance Extremities: normal pulses Neurological: nl speech, nl strength Skin: nl turgor, No rash or lesions Lymph: nl lymph nodes Results Result Diagram: 04/09/17 0509 04/09/17 0511 Results 24 hrs Laboratory Tests Test 04/09/17 05:09 04/09/17 05:11 White Blood Count 12.7 #H Red Blood Count 3.37 L Hemoglobin 10.0 L Hematocrit 30.3 L Mean Corpuscular Volume 89.9 Mean Corpuscular Hemoglobin 29.7 Mean Corpuscular Hemoglobin Concent 33.0 Red Cell Distribution Width 12.9 Platelet Count 343 Mean Platelet Volume 8.9 Neutrophils % 77.5 H Lymphocytes % 13.3 L Monocytes % 7.1 Eosinophils % 0.7 Basophils % 0.2 Nucleated Red Blood Cells % 0.0 Neutrophils # 9.8 H Lymphocytes # 1.7 Monocytes # 0.9 Eosinophils # 0.1 Basophils # 0.0 Nucleated Red Blood Cells # 0.0 Sodium Level 138 Potassium Level 3.3 L Chloride Level 98 Carbon Dioxide Level 29 Anion Gap 14 Blood Urea Nitrogen 5 L Creatinine 0.41 L Glucose Level 102 Calcium Level 7.9 L Total Bilirubin 0.2 Direct Bilirubin 0.00 Indirect Bilirubin 0.2 Aspartate Amino Transf (AST/SGOT) 54 H Alanine Aminotransferase (ALT/SGPT) 63 Alkaline Phosphatase 88 Total Protein 5.7 L Albumin 2.6 L Globulin 3.10 Albumin/Globulin Ratio 0.83 Medications Medications Current Medications Sodium Chloride (NS) 1,000 ml @ 100 mls/hr Q10H IV Last administered on 14:37; Admin Dose 100 MLS/HR; Start 04/03/17 at 00:30 Pantoprazole (Protonix Iv) 40 mg DAILY@06 IV Last administered on 04/09/17 05: 31; Admin Dose 40 MG; Start 04/03/17 at 06:00 Hydralazine HCl 10 mg 10 mg Q6H PRN IV SBP>160; Start 04/03/17 at 12:30 Piperacillin Sod/ Tazobactam Sod (Zosyn 3.375gm/ 100 ml (Pmx)) 100 ml @ 200 mls /hr Q8 IVPB Last administered on 04/09/17 13:43; Admin Dose 200 MLS/HR; Start 04/04/17 at 15:00 Metoclopramide HCl (Reglan) 10 mg Q6H PRN IV NAUSEA AND/OR VOMITING; Start at 14:30 Ondansetron HCl (Zofran Inj) 4 mg Q6H PRN IV NAUSEA AND/OR VOMITING; Start at 14:30 Hydromorphone HCl (Dilaudid) 0.5 mg Q4H PRN IV BREAKTHROUGH PAIN Last administered on 04/09/17 14:08; Admin Dose 0.5 MG; Start 04/08/17 at 14:30 Acetaminophen (Tylenol Tab) 650 mg Q6H PRN PO PAIN AND OR ELEVATED TEMP; Start 04/08/17 at 14:30 Acetaminophen/ Hydrocodone Bitart ([place] (5/325)) 1 tab Q6H PRN PO PAIN LEVEL 6 -10; Start 04/08/17 at 14:30 Acetaminophen/ Hydrocodone Bitart ([place] (10/325)) 1 tab Q6H PRN PO PAIN LEVEL 6-10; Start 04/08/17 at 14:30 Docusate Sodium (Colace) 100 mg BID PO Last administered on 04/09/17t 09:57; Admin Dose 100 MG; Start 04/08/17 at 21:00 Enoxaparin Sodium (Lovenox) 40 mg DAILY SC ; Start 04/10/17 at 09:00 LORY PAULINO NP Apr 09, 2017 15:38
--- NOTE | 2017-04-09 15:59 | PN ---
Date/Time of Note Date/Time of Note DATE: 04/09/17 TIME: 15:54 Assessment/Plan VTE Prophylaxis VTE Prophylaxis Intervention: LMWH Lines/Catheters IV C[facility]ter Type (from [facility]): Peripheral IV Urinary Cath still in place: No Assessment/Plan Chief Complaint/Hosp Course Assessment and plan 1. Gallstone pancreatitis. Patient status post MRCP. No noted choledocholithiasis. Lipase levels normalized. s/p laparoscopic cholecystectomy. continue pain management 2. Cholelithiasis. s/p cholecystectomy. cont post op care . 3. Hypokalemia. Will replete and check level in a.m. 4. Leukocytosis likely secondary to #1. On antibiotics. We will follow-up Disposition plan: Status post arthroscopic cholecystectomy. Continue with analgesics. Advance as tolerated. Anticipate discharge within the next 24 hours when cleared by consultants Discussed plan of care with Dr. Markham Problems: Subjective 24 Hr Interval Summary Free Text/Dictation Patient status post laparoscopic cholecystectomy. No apparent distress. Exam/Review of Systems Vital Signs Vitals Vital Signs Date Time Temp Pulse Resp B/P Pulse Ox O2 Delivery O2 Flow Rate FiO2 04/09/17 14:20 98.3 88 18 130/64 96 04/08/17 15:08 Nasal Cannula 2.0 Intake and Output 04/08/17 04/08/17 04/09/17 15:00 23:00 07:00 Intake Total 600 ml 100 ml 1850 ml Output Total 10 ml 1100 ml 110 ml Balance 590 ml -1000 ml 1740 ml Exam Constitutional: alert, oriented Psych: nl mood/affect Eyes: nl conjunctiva Neck: supple, No jvd Respiratory: clear to auscultation Cardiovascular: regular rate and rhythm Gastrointestinal: non-tender, soft Neurological: FUR REPAIR INSPECTOR II-XII intact, nl mental status, nl speech Results Result Diagram: 04/09/17 0509 04/09/17 0511 Results 24 hrs Laboratory Tests Test 04/09/17 05:09 04/09/17 05:11 White Blood Count 12.7 #H Red Blood Count 3.37 L Hemoglobin 10.0 L Hematocrit 30.3 L Mean Corpuscular Volume 89.9 Mean Corpuscular Hemoglobin 29.7 Mean Corpuscular Hemoglobin Concent 33.0 Red Cell Distribution Width 12.9 Platelet Count 343 Mean Platelet Volume 8.9 Neutrophils % 77.5 H Lymphocytes % 13.3 L Monocytes % 7.1 Eosinophils % 0.7 Basophils % 0.2 Nucleated Red Blood Cells % 0.0 Neutrophils # 9.8 H Lymphocytes # 1.7 Monocytes # 0.9 Eosinophils # 0.1 Basophils # 0.0 Nucleated Red Blood Cells # 0.0 Sodium Level 138 Potassium Level 3.3 L Chloride Level 98 Carbon Dioxide Level 29 Anion Gap 14 Blood Urea Nitrogen 5 L Creatinine 0.41 L Glucose Level 102 Calcium Level 7.9 L Total Bilirubin 0.2 Direct Bilirubin 0.00 Indirect Bilirubin 0.2 Aspartate Amino Transf (AST/SGOT) 54 H Alanine Aminotransferase (ALT/SGPT) 63 Alkaline Phosphatase 88 Total Protein 5.7 L Albumin 2.6 L Globulin 3.10 Albumin/Globulin Ratio 0.83 Medications Medications Current Medications Sodium Chloride (NS) 1,000 ml @ 100 mls/hr Q10H IV Last administered on 14:37; Admin Dose 100 MLS/HR; Start 04/03/17 at 00:30 Pantoprazole (Protonix Iv) 40 mg DAILY@06 IV Last administered on 04/09/17 05: 31; Admin Dose 40 MG; Start 04/03/17 at 06:00 Hydralazine HCl 10 mg 10 mg Q6H PRN IV SBP>160; Start 04/03/17 at 12:30 Piperacillin Sod/ Tazobactam Sod (Zosyn 3.375gm/ 100 ml (Pmx)) 100 ml @ 200 mls /hr Q8 IVPB Last administered on 04/09/17 13:43; Admin Dose 200 MLS/HR; Start 04/04/17 at 15:00 Metoclopramide HCl (Reglan) 10 mg Q6H PRN IV NAUSEA AND/OR VOMITING; Start at 14:30 Ondansetron HCl (Zofran Inj) 4 mg Q6H PRN IV NAUSEA AND/OR VOMITING; Start at 14:30 Hydromorphone HCl (Dilaudid) 0.5 mg Q4H PRN IV BREAKTHROUGH PAIN Last administered on 04/09/17 14:08; Admin Dose 0.5 MG; Start 04/08/17 at 14:30 Acetaminophen (Tylenol Tab) 650 mg Q6H PRN PO PAIN AND OR ELEVATED TEMP; Start 04/08/17 at 14:30 Acetaminophen/ Hydrocodone Bitart ([place] (5/325)) 1 tab Q6H PRN PO PAIN LEVEL 6 -10; Start 04/08/17 at 14:30 Acetaminophen/ Hydrocodone Bitart ([place] (10/325)) 1 tab Q6H PRN PO PAIN LEVEL 6-10; Start 04/08/17 at 14:30 Docusate Sodium (Colace) 100 mg BID PO Last administered on 04/09/17 09:57; Admin Dose 100 MG; Start 04/08/17 at 21:00 Enoxaparin Sodium (Lovenox) 40 mg DAILY SC ; Start 04/10/17 at 09:00 DALTON BEATTY Apr 09, 2017 15:58
[2017-04-09 20:14] VITALS: BP 136/60; RESP 18
[2017-04-10 02:00] VITALS: BP 148/72; RESP 20
[2017-04-10] MEDS: HYDROmorphONE 1 MG/ML SYG IV PRN ×4 (02:35→14:57)
[2017-04-10] MEDS: SOD CHLORIDE 0.9% 1,000 ML IV SCH ×2 (03:00→12:05)
[2017-04-10] MEDS: PANTOPRAZOLE 40 MG INJ IV SCH (05:05)
[2017-04-10] MEDS: PIPER-TAZO 3.375 GM IV (PMX) 100 ML IVPB SCH ×2 (05:06→14:57)
[2017-04-10 05:50] LABS: ADD SCAN DIFF NO
[2017-04-10 05:54] LABS: BASOPHILS % 0.1 % (0.0-2.0); EOSINOPHILS # 0.1 10^3/ul (0.0-0.5); EOSINOPHILS % 0.9 % (0.0-7.0); HEMATOCRIT 30.7 % (37.0-47.0); LYMPHOCYTES # 1.8 10^3/ul (0.8-2.9); MEAN CORPUSCULAR HEMOGLOBIN 28.7 pg (29.0-33.0); MEAN CORPUSCULAR HGB CONC 32.6 g/dl (32.0-37.0); MEAN PLATELET VOLUME 8.9 fl (7.4-10.4); MONOCYTE # 0.9 10^3/ul (0.3-0.9); MONOCYTES % 7.1 % (0.0-11.0); NEUTROPHIL # 9.2 10^3/ul (1.6-7.5); NEUTROPHILS % 75.3 % (39.0-77.0); PLATELET COUNT 369 10^3/UL (140-415); RED BLOOD COUNT 3.49 10^6/ul (4.20-5.40); RED CELL DISTRIBUTION WIDTH 13.1 % (11.5-14.5); WHITE BLOOD COUNT 12.3 10^3/ul (4.8-10.8)
[2017-04-10 06:52] LABS: ALBUMIN 2.7 g/dl (3.3-4.9); ALBUMIN/GLOBULIN RATIO 0.84; BILIRUBIN,INDIRECT 0.1 mg/dl (0-1.1); BILIRUBIN,TOTAL 0.1 mg/dl (0.2-1.3); CALCIUM 8.1 mg/dl (8.4-10.2); CREATININE 0.38 mg/dl (0.44-1.00); POTASSIUM 3.3 mmol/L (3.5-5.1); TOTAL PROTEIN 5.9 g/dl (6.1-8.1)
[2017-04-10] MEDS: DOCUSATE SODIUM 100 MG CAP PO SCH (08:34)
[2017-04-10 08:44] VITALS: BP 131/71; RESP 21
[2017-04-10] MEDS ORDERED: ENOXAPARIN 40 MG/0.4 ML SYG SC SCH (09:00)
[2017-04-10 14:43] VITALS: BP 152/92; RESP 22
[2017-04-10] MEDS ORDERED: POTASSIUM CHLORIDE (SR) 20 MEQ TAB PO STA (14:51)
[2017-04-10] MEDS ORDERED: DOCU-144 PO (14:56)
[2017-04-10] MEDS ORDERED: OXYC-279 PO (14:56)
[2017-04-10] MEDS ORDERED: CEPH-443 PO (14:56)
--- NOTE | 2017-04-10 14:58 | PDOCDIS ---
Discharge Instructions DIAGNOSIS Discharge Diagnosis 1. Possible pancreatitis 2. Cholelithiasis 3. Hypokalemia 4. Leukocytosis secondary to #1 CONDITION Patient Condition: Stable HOME CARE INSTRUCTIONS: Special Diet: low cholesterol,low fat FOLLOW UP/APPOINTMENTS Follow-up Plan 1. Follow up with Dr. Phan Parsons in one week DALTON BEATTY Apr 10, 2017 14:58
--- NOTE | 2017-04-10 16:25 | DS ---
Date/Time of Note Date/Time of Note DATE: 04/10/17 TIME: 16:21 Discharge Summary Admission/Discharge Info Admit Date/Time Apr 02, 2017 at 22:29 Discharge Date/Time Discharge Diagnosis 1. Possible pancreatitis 2. Cholelithiasis 3. Hypokalemia 4. Leukocytosis secondary to #1 Patient Condition: Stable Consults 1. Dr. Rashawn Guerra 2. Dr. Phan Parsons Hospital Course This is a 51-year-old female was transferred from [place] due to insurance reason due to reports of epigastric pain. Of note patient was previously advised [facility] with diagnosis of cholecystitis and was scheduled for outpatient cholecystectomy. Patient while at [facility] was found to have gallstones and ultrasound with no evidence of cholecystitis. She was seen however with pancreatitis with lipase of 2820. Patient was noted with gallstone pancreatitis. She was also seen by [place] [facility] radiology technician. She did have an MRCP that was noted with no choledocholithiasis. Due to patient's symptoms she did have laparoscopic cholecystectomy did tolerate procedure well. She was otherwise optimized medically. She did have some hypokalemia and was repleted with electrolytes. During her course of stay she did improve. She did report less pain in her abdomen. She was instructed to follow-up with a primary care provider as well as surgeon within a week. The plan of care was discussed with the patient and patient did verbalize her understanding. On the discharge patient was in stable condition Discussed plan of care with Dr. Markham [place] Meds Active Scripts Cephalexin* (Keflex*) 500 Mg Capsule, 500 MG PO Q8, #21 CAP Prov:DALTON BEATTY 04/10/17 Docusate Sodium* (Colace*) 100 Mg Capsule, 100 MG PO BID, #30 CAP Prov:DALTON BEATTY 04/10/17 Follow-up Plan CONDITION Patient Condition: Stable HOME CARE INSTRUCTIONS: Special Diet: low cholesterol,low fat FOLLOW UP/APPOINTMENTS Follow-up Plan 1. Follow up with Dr. Phan Parsons in one week Primary Care Provider [facility] Time spent on discharge: > 30 minutes Pending Labs Laboratory Tests Test 04/10/17 05:05 White Blood Count 12.310^3/ul (4.8-10.8) Red Blood Count 3.4910^6/ul (4.20-5.40) Hemoglobin 10.0g/dl (12.0-16.0) Hematocrit 30.7% (37.0-47.0) Mean Corpuscular Volume 88.0fl (82.0-101.0) Mean Corpuscular Hemoglobin 28.7pg (29.0-33.0) Mean Corpuscular Hemoglobin Concent 32.6g/dl (32.0-37.0) Red Cell Distribution Width 13.1% (11.5-14.5) Platelet Count 67099^3/UL (140-415) Mean Platelet Volume 8.9fl (7.4-10.4) Neutrophils % 75.3% (39.0-77.0) Lymphocytes % 15.0% (15.0-51.0) Monocytes % 7.1% (0.0-11.0) Eosinophils % 0.9% (0.0-7.0) Basophils % 0.1% (0.0-2.0) Nucleated Red Blood Cells % 0.0/100WBC (0.0-0.0) Neutrophils # 9.210^3/ul (1.6-7.5) Lymphocytes # 1.810^3/ul (0.8-2.9) Monocytes # 0.910^3/ul (0.3-0.9) Eosinophils # 0.110^3/ul (0.0-0.5) Basophils # 0.010^3/ul (0.0-0.1) Nucleated Red Blood Cells # 0.010^3/ul (0.0-0.0) Sodium Level 139mmol/L (135-144) Potassium Level 3.3mmol/L (3.5-5.1) Chloride Level 100mmol/L (97-110) Carbon Dioxide Level 29mmol/L (21-31) Anion Gap 13 (8-16) Blood Urea Nitrogen 3mg/dl (7-20) Creatinine 0.38mg/dl (0.44-1.00) Glucose Level 118mg/dl (70-220) Calcium Level 8.1mg/dl (8.4-10.2) Magnesium Level 1.8mg/dl (1.7-2.5) Total Bilirubin 0.1mg/dl (0.2-1.3) Direct Bilirubin 0.00mg/dl (0.00-0.20) Indirect Bilirubin 0.1mg/dl (0-1.1) Aspartate Amino Transf (AST/SGOT) 35IU/L (15-46) Alanine Aminotransferase (ALT/SGPT) 53IU/L (13-69) Alkaline Phosphatase 86IU/L (42-121) Total Protein 5.9g/dl (6.1-8.1) Albumin 2.7g/dl (3.3-4.9) Globulin 3.20g/dl (1.3-3.2) Albumin/Globulin Ratio 0.84 DALTON BEATTY Apr 10, 2017 16:25
--- NOTE | 2017-04-10 16:27 | PN ---
Date/Time of Note Date/Time of Note DATE: 04/10/17 TIME: 16:26 Assessment/Plan VTE Prophylaxis VTE Prophylaxis Intervention: SCD's Lines/Catheters IV C[facility]ter Type (from [facility]): Peripheral IV Urinary Cath still in place: No Assessment/Plan Assessment/Plan Assessment * Abdominal pain Gallstone pancreatitis MRCP Cholelithiasis without evidence of acute cholecystitis. No evidence of choledocholithiasis or biliary tract obstruction. Extensive pancreatic and peripancreatic edema compatible with acute pancreatitis. No evidence of organized fluid collection. * Laparoscopic cholecystectomy Plan * Stable for outpatient management * continue present management * case discussed with Dr Guerra Subjective 24 Hr Interval Summary Free Text/Dictation * Course reviewed * No untoward events overnight Exam/Review of Systems Vital Signs Vitals Vital Signs Date Time Temp Pulse Resp B/P Pulse Ox O2 Delivery O2 Flow Rate FiO2 04/10/17 14:43 98.4 88 22 152/92 94 04/08/17 15:08 Nasal Cannula 2.0 Intake and Output 04/09/17 04/09/17 04/10/17 15:00 23:00 07:00 Intake Total 900 ml 1410 ml 1780 ml Output Total 1500 ml Balance 900 ml -90 ml 1780 ml Exam Constitutional: alert, oriented Psych: nl mood/affect, no complaints Eyes: nl conjunctiva Neck: non-tender, supple Respiratory: clear to auscultation, normal air movement Cardiovascular: nl pulses, regular rate and rhythm Gastrointestinal: nl liver, spleen, non-tender, soft Musculoskeletal: nl extremities to inspection, nl gait and stance Neurological: nl speech, nl strength Results Result Diagram: 04/10/17 0505 04/10/17 0505 Results 24 hrs Laboratory Tests Test 04/10/17 05:05 White Blood Count 12.3 H Red Blood Count 3.49 L Hemoglobin 10.0 L Hematocrit 30.7 L Mean Corpuscular Volume 88.0 Mean Corpuscular Hemoglobin 28.7 L Mean Corpuscular Hemoglobin Concent 32.6 Red Cell Distribution Width 13.1 Platelet Count 369 Mean Platelet Volume 8.9 Neutrophils % 75.3 Lymphocytes % 15.0 Monocytes % 7.1 Eosinophils % 0.9 Basophils % 0.1 Nucleated Red Blood Cells % 0.0 Neutrophils # 9.2 H Lymphocytes # 1.8 Monocytes # 0.9 Eosinophils # 0.1 Basophils # 0.0 Nucleated Red Blood Cells # 0.0 Sodium Level 139 Potassium Level 3.3 L Chloride Level 100 Carbon Dioxide Level 29 Anion Gap 13 Blood Urea Nitrogen 3 L Creatinine 0.38 L Glucose Level 118 Calcium Level 8.1 L Magnesium Level 1.8 Total Bilirubin 0.1 L Direct Bilirubin 0.00 Indirect Bilirubin 0.1 Aspartate Amino Transf (AST/SGOT) 35 Alanine Aminotransferase (ALT/SGPT) 53 Alkaline Phosphatase 86 Total Protein 5.9 L Albumin 2.7 L Globulin 3.20 Albumin/Globulin Ratio 0.84 Medications Medications Current Medications Sodium Chloride (NS) 1,000 ml @ 100 mls/hr Q10H IV Last administered on 03:00; Admin Dose 100 MLS/HR; Start 04/03/17 at 00:30 Pantoprazole (Protonix Iv) 40 mg DAILY@06 IV Last administered on 04/10/17 05: 05; Admin Dose 40 MG; Start 04/03/17 at 06:00 Hydralazine HCl 10 mg 10 mg Q6H PRN IV SBP>160; Start 04/03/17 at 12:30 Piperacillin Sod/ Tazobactam Sod (Zosyn 3.375gm/ 100 ml (Pmx)) 100 ml @ 200 mls /hr Q8 IVPB Last administered on 04/10/17 14:57; Admin Dose 200 MLS/HR; Start 04/04/17 at 15:00 Metoclopramide HCl (Reglan) 10 mg Q6H PRN IV NAUSEA AND/OR VOMITING; Start at 14:30 Ondansetron HCl (Zofran Inj) 4 mg Q6H PRN IV NAUSEA AND/OR VOMITING; Start at 14:30 Hydromorphone HCl (Dilaudid) 0.5 mg Q4H PRN IV BREAKTHROUGH PAIN Last administered on 04/10/17 14:57; Admin Dose 0.5 MG; Start 04/08/17 at 14:30 Acetaminophen (Tylenol Tab) 650 mg Q6H PRN PO PAIN AND OR ELEVATED TEMP; Start 04/08/17 at 14:30 Acetaminophen/ Hydrocodone Bitart (Blue Eye (5/325)) 1 tab Q6H PRN PO PAIN LEVEL 6 -10; Start 04/08/17 at 14:30 Acetaminophen/ Hydrocodone Bitart (Blue Eye (10/325)) 1 tab Q6H PRN PO PAIN LEVEL 6-10; Start 04/08/17 at 14:30 Docusate Sodium (Colace) 100 mg BID PO Last administered on 04/10/17 08:34; Admin Dose 100 MG; Start 04/08/17 at 21:00 Enoxaparin Sodium (Lovenox) 40 mg DAILY SC Last administered on 04/10/17 08:34 ; Admin Dose 40 MG; Start 04/10/17 at 09:00 LORY PAULINO NP Apr 10, 2017 16:27
== END 2017-04-10 20:09 | disposition home or self-care (01) | DRG 418 ==
LOC: PP2 22:29
PROVIDERS: ADMIT Family Medicine; ATTEND Family Medicine
PROC: 0FT44ZZ Resection of Gallbladder, Percutaneous Endoscopic Approach (ICD-10-PCS; principal; 2017-04-08 12:00)
DX: K85.10 Biliary acute pancreatitis without necrosis or infection (principal); N39.0 Urinary tract infection, site not specified; K80.20 Calculus of gallbladder without cholecystitis without obstruction; E87.6 Hypokalemia; E66.9 Obesity, unspecified; R74.0 Nonspecific elevation of levels of transaminase and lactic acid dehydrogenase [LDH]; Z68.38 Body mass index [BMI] 38.0-38.9, adult
CPT/HCPCS: 71010; 74181; 80048; 80053; 80061; 81001; 82150; 83036; 83605; 83690; 83735; 84100; 84443; 84702; 85025; 85610; 85730; 87040; 87086; 88304; 93005; 97162; C9113; J0744; J1170; J1650; J1885; J2405; J2543; J2765; J3010; J3480; J7030; J7050; J7999